=== PATIENT | female | born 1980 | race Caucasian/White ===

== ENCOUNTER 2017-09-03 08:19 | Inpatient (IN) ==
[2017-09-03] MEDS ORDERED: 0.9 % Sodium Chloride 1,000 ML IVC ONE (09:12)
[2017-09-03] MEDS ORDERED: 0.9 % Sodium Chloride 1,000 ML ONE (09:32)
[2017-09-03] MEDS ORDERED: 0.9 % Sodium Chloride 250 ML ONE (09:32)
[2017-09-03] MEDS ORDERED: Vancomycin 1,000 MG VIAL ONE (09:32)
--- NOTE | 2017-09-03 09:34 | Emergency Department Note ---
Disposition Clinical Impression: Finger infection Disposition: Admitted As Inpatient Condition: Fair Time of Disposition: 09:58 Extremity Problem HPI - General Chief complaint: ED Extremity Problem,Nontraumatic Stated complaint: finger Abscess Time Seen by Provider: 09/03/17 08:30 Source: patient Limitations: no limitations Nursing Notes Reviewed: Yes Vital Signs Reviewed: Yes - History of Present Illness HPI Narrative: Patient is a 36-year-old female who presents to [facility] ED with a chief complaint of left middle finger swelling, pain, redness. Patient states it has been there for the last several days. She admits to IV drug use though she did not inject in the site. She did try to incise and drain this on her own but states she did not get anything out. Admits to subjective fevers and chills at home. Denies any nausea, vomiting, chest pain, difficulty breathing, abdominal pain, problems with urination or bowel movements. Patient states she has an septic in the past from similar situation. Pt Subjective Complaint: extremity pain, extremity swelling Onset (ago): day(s) Consistency: Worsening Injury Location: left, upper extremity Pain Scale: 8 Quality: aching Improves with: nothing Worsens with: range of motion, palpation Associated symptoms: Reports: fever, change in appearance, swelling, redness. Denies: chest pain, shortness of breath, abdominal pain, back pain - Related Data Home Medications Medication Instructions Recorded Confirmed Venlafaxine XR (24 HR) [Effexor XR] 75 mg PO DAILY 08/19/16 09/03/17 Ferrous Sulfate [Iron] 325 mg PO DAILY 09/03/17 09/03/17 Gabapentin [Neurontin] 800 mg PO TID 09/03/17 09/03/17 cloNIDine HCl [CloNIDine HCl] 0.1 mg PO BID 09/03/17 09/03/17 Allergies Allergy/AdvReac Type Severity Reaction Status Date / Time linezolid [From Zyvox] Allergy Hives Verified 08/12/17 22:19 All systems ED: reviewed and negative except as stated. Past Medical History - Past Medical History Attestation: Yes The following information was validated with the patient. Source: patient Medical history: Reports: COPD, hepatitis Psychiatric history: Reports: no psych history - Social History Smoking Status: Current every day smoker Alcohol use: Reports: none Drug use: Reports: IV Drug Use Physical Exam - General Limitations: no limitations General appearance: alert, in no apparent distress - Head Head exam: atraumatic, normocephalic, normal inspection - Eye Eye exam: Present: normal appearance, EOMI - Neck Neck exam: Present: normal inspection - Chest Chest inspection: Present: symmetric chest wall rise - Respiratory Respiratory exam: Present: normal lung sounds bilaterally - Cardiovascular Cardiovascular exam: Present: normal rhythm, tachycardia - Abdominal Exam Abdominal exam: Present: soft, Non-Tender. Absent: tenderness, distention, guarding, rebound, rigidity - Expanded Upper Extremity Exam Hand exam: Present: tenderness, swelling, erythema - Neurological Exam Neurological exam: Present: alert, oriented X3 - Psychiatric Psychiatric exam: Present: normal affect, normal mood - Skin Skin exam: Present: warm, dry, intact, normal color Course Course Narrative: Patient seen and examined. Left middle digit swelling and erythema. Bedside ultrasound performed which showed some increased edema and fluid surrounding the extensor tendons. Patient has pain with passive range of motion though not any pain along the proximal digital sheet. I discussed with orthopedic surgeon Dr. Starkey who would also like a CRP and ESR and a L hand xray. He will see the patient in consultation. Patient will be admitted to the hospitalist service once her workup is complete. - Reevaluation(s) Reevaluation #1: Labwork shows CRP 37, otherwise unremarkable. Discussed with hospitalist Dr. De Santiago who has accepted pt for admission. Would like Zosyn added. Time: 09:58 Vital Signs Temperature 98.5 F 09/03/17 08:22 Pulse Rate 108 09/03/17 08:22 Respiratory Rate 18 09/03/17 08:22 Blood Pressure 144/99 09/03/17 08:22 O2 Sat by Pulse Oximetry 100 09/03/17 08:22 Temperature 98.5 F 09/03/17 08:22 Pulse Rate 94 09/03/17 10:11 Respiratory Rate 16 09/03/17 10:11 Blood Pressure 141/97 09/03/17 10:11 O2 Sat by Pulse Oximetry 100 09/03/17 08:22 Oxygen Delivery Oxygen Delivery Room Air Extremity Problem, Nontraumati - Medical Records Medical records reviewed: Yes I reviewed the patient's medical records. - Lab Data Lab results reviewed: Yes I reviewed the patient's lab results. Result diagrams: 09/03/17 09:24 09/03/17 09:24 Lab Results 09/03/17 09/03/17 09/03/17 Range/Units 09:24 09:24 09:24 WBC 7.4 (4.3-11.1) K/mcL RBC 4.87 (3.82-4.97) M/mcL Hgb 12.9 (11.5-15.4) g/dL Hct 40.9 (35.3-44.9) % MCV 84.0 (83.0-100.0) fL MCH 26.5 L (28.0-33.3) pg MCHC 31.5 L (31.6-35.5) g/dL RDW 15.7 H (11.5-14.5) % Plt Count 237 (140-400) K/mcL MPV 8.9 L (9.4-12.4) fL Immature Gran % 0.3 (0-4) % Seg Neutrophils % 69.4 % Lymphocytes % 20.9 % Monocytes % 5.6 % Eosinophils % 3.7 % Basophils % 0.1 % Neutrophils # 5.1 (1.6-8.9) K/mcL Lymphocytes # 1.5 (0.6-4.6) K/mcL Monocytes # 0.4 (0.0-1.3) K/mcL Eosinophils # 0.3 (0.0-0.6) K/mcL Basophils # 0.0 (0.0-0.2) K/mcL ESR (0-15) mm/hr Sodium 134 L (136-145) mEq/L Potassium 3.7 (3.5-5.1) mEq/L Chloride 100 (98-107) mEq/L Carbon Dioxide 27 (23-29) mEq/L BUN 11 (6-20) mg/dL Creatinine 0.73 (0.60-1.20) mg/dL Est GFR ( Amer) > 60 (> 60) Est GFR (Non-Af Amer) > 60 (> 60) BUN/Creatinine Ratio 15 (6-26) Glucose 94 (70-105) mg/dL Calculated Osmolality 277 L (280-300) Lactic Acid 0.6 (0.5-2.2) mmol/L Calcium 9.7 (8.6-10.3) mg/dL C-Reactive Protein 37 H (Less than 10) mg/L 09/03/17 Range/Units 09:24 WBC (4.3-11.1) K/mcL RBC (3.82-4.97) M/mcL Hgb (11.5-15.4) g/dL Hct (35.3-44.9) % MCV (83.0-100.0) fL MCH (28.0-33.3) pg MCHC (31.6-35.5) g/dL RDW (11.5-14.5) % Plt Count (140-400) K/mcL MPV (9.4-12.4) fL Immature Gran % (0-4) % Seg Neutrophils % % Lymphocytes % % Monocytes % % Eosinophils % % Basophils % % Neutrophils # (1.6-8.9) K/mcL Lymphocytes # (0.6-4.6) K/mcL Monocytes # (0.0-1.3) K/mcL Eosinophils # (0.0-0.6) K/mcL Basophils # (0.0-0.2) K/mcL ESR 57 H (0-15) mm/hr Sodium (136-145) mEq/L Potassium (3.5-5.1) mEq/L Chloride (98-107) mEq/L Carbon Dioxide (23-29) mEq/L BUN (6-20) mg/dL Creatinine (0.60-1.20) mg/dL Est GFR ( Amer) (> 60) Est GFR (Non-Af Amer) (> 60) BUN/Creatinine Ratio (6-26) Glucose (70-105) mg/dL Calculated Osmolality (280-300) Lactic Acid (0.5-2.2) mmol/L Calcium (8.6-10.3) mg/dL C-Reactive Protein (Less than 10) mg/L - Radiology Data Radiology results reviewed: Yes I reviewed the patient's radiology results. Attestation Statement - Attestation Attestation: I examined this patient and my medical decision-making was reviewed with the Resident Physician. I agree with the documented findings, disposition and treatment plan as described except to the extent set forth below. Has fusiform swelling and pain w passive extension, does not hold finger in passive flexion, no pain along flexor tendon sheath. Denies injecting at this site, admits to IVDA.
[2017-09-03 09:42] LABS: Basophils % 0.1 %; Eosinophils # 0.3 K/mcL (0.0-0.6); Eosinophils % 3.7 %; Hematocrit 40.9 % (35.3-44.9); Hemoglobin 12.9 g/dL (11.5-15.4); Immature Granulocytes % 0.3 % (0-4); Lymphocytes # 1.5 K/mcL (0.6-4.6); Lymphocytes % 20.9 %; Mean Corpuscular HGB Conc 31.5 g/dL (31.6-35.5); Mean Corpuscular Hemoglobin 26.5 pg (28.0-33.3); Mean Platelet Volume 8.9 fL (9.4-12.4); Monocytes # 0.4 K/mcL (0.0-1.3); Monocytes % 5.6 %; Neutrophils # 5.1 K/mcL (1.6-8.9); Platelet Count 237 K/mcL (140-400); Red Blood Count 4.87 M/mcL (3.82-4.97); Red Cell Distribution Width 15.7 % (11.5-14.5); Segmented Neutrophils % 69.4 %
[2017-09-03 09:55] LABS: BUN/Creatinine Ratio 15 (6-26); Blood Urea Nitrogen 11 mg/dL (6-20); C-Reactive Protein 37 mg/L (Less than 10); Calcium 9.7 mg/dL (8.6-10.3); Carbon Dioxide 27 mEq/L (23-29); Chloride 100 mEq/L (98-107); Glucose 94 mg/dL (70-105); Osmolality,Calculated 277 (280-300); Potassium 3.7 mEq/L (3.5-5.1); Sodium 134 mEq/L (136-145); eGFR For African Americans > 60 (> 60); eGFR For Non-African Americans > 60 (> 60)
[2017-09-03] MEDS ORDERED: Piperacillin/Tazobactam 3.375 GM in 0.9 % Sodium Chloride Mini Bag 100 ML IVPB ONE (09:55)
[2017-09-03] MEDS ORDERED: Naloxone 0.4 MG/ML INJ IVP PRN (11:03)
[2017-09-03] MEDS ORDERED: Acetaminophen 325 MG TABLET PO PRN (11:03)
[2017-09-03] MEDS ORDERED: 0.9 % Sodium Chloride 1,000 ML IVC SCH (11:15)
[2017-09-03] MEDS: *HR* FentaNYL (PF) 100 MCG/2 ML VIAL IVP PRN ×2 (11:31→16:04)
[2017-09-03] MEDS: *HR* HYDROcodone/Acet 5/325 mg TABLET PO PRN ×2 (13:27→22:00)
[2017-09-03] MEDS: Venlafaxine XR (24 HR) 75 MG CAP.ER.24H PO SCH (13:28)
--- NOTE | 2017-09-03 14:04 | Internal Med History&Physical ---
Date of Encounter: 09/03/17 Time of Encounter: 11:30 Assessment and Plan (1) Abscess of left middle finger Current visit: Yes Status: Acute Admit the pt into Tele high risk pt for sepsis and bacteremia ordered blood cx x 2 sets Ortho consulted Reviewed Left hand X ray - no acute fracture noticed.. Diffuse swelling of 3rd finger ESR -57, CRP -37 Started on empirical abx Vancomycin and Zosyn continue symptomatic and supportive care (2) Cellulitis of left middle finger Current visit: Yes Status: Acute (3) IV drug abuse Current visit: Yes Status: Acute counseled to quit had last Heroin 3 days ago as per pt high risk for withdrawl symptoms on CIWA protocol Ativan PRN on Tele monitor Cont Clonidine (4) S/P infectious endocarditis Current visit: Yes Status: Acute If pt became bacteremic need further cardiac work up TTE vs WIN Internal Medicine - H&P: HPI Chief complaint: Left middle finger cellulities Admitted From: Emergency Dept Plans for Post Hospital Care: Home History of present illness: Ms. Cerrato is a 36 year old female with known past medical history of IV drug abuse, h/o Infectious endocarditis who is still actively doing IV heroin now she presented to ER with Left 3rd finger swelling, erythema and worsening tenderness from last 3 days. pt did mention trauma to that finger while she was moving some boxes, however she denied any IV drugs injecting in that finger. Past Med Surg Social Fam HX - Past Medical History Medical history: COPD, hepatitis Psychiatric history: no psych history - Past Surgical History Surgical History: - Social History Smoking Status: Current every day smoker Packs per day: 0.5 Smokeless Tobacco Status: No Alcohol use: none Drug use: IV Drug Use - Additional Family History Additional family history: Family hsitory reviewed and non contribuitory to current problem. Internal Medicine - H&P: Meds Venlafaxine XR (24 HR) [Effexor XR] 75 mg PO DAILY 08/19/16 [History] Ferrous Sulfate [Iron] 325 mg PO DAILY 09/03/17 [History] Gabapentin [Neurontin] 800 mg PO TID 09/03/17 [History] cloNIDine HCl [CloNIDine HCl] 0.1 mg PO BID 09/03/17 [History] 3 Allergy/AdvReac Type Severity Reaction Status Date / Time linezolid [From Zyvox] Allergy Hives Verified 08/12/17 22:19 All Systems PM: A 10-system review of systems was performed and is negative for pertinent findings except as documented above in the HPI. Review of systems: All the systems are reviewed everything is benign except the systems and symptoms I mentioned in the history of present illness - Constitutional Vitals: Temp Pulse Resp BP Pulse Ox 98.4 F 115 14 129/85 96 09/03/17 10:41 09/03/17 10:41 09/03/17 10:41 09/03/17 10:41 09/03/17 10:41 General appearance: Present: cooperative, A&O X 3, no acute distress, answers questions appropriately - Head Head exam: Present: atraumatic, normal inspection - Neck Neck exam general surgery: Present: supple - Respiratory Respiratory exam: Present: decreased breath sounds. Absent: rales, respiratory distress, rhonchi, wheezes - Cardiovascular Cardiovascular exam: Present: RRR, +S1, +S2. Absent: tachycardia - GI/Abdominal GI/Abdominal exam: Present: normal bowel sounds, soft. Absent: rebound, rigid, tenderness - Extremities Exam Extremities exam: Absent: calf tenderness, pedal edema, tenderness Additional comments: Swollen Left 3rd finger and erythema and severe tenderness. No open wound / no purulent drainage noticed - Back Exam Back exam: Absent: CVA tenderness (L), CVA tenderness (R) - Neurological Exam Neurological exam: Present: alert, oriented X3 - Psychiatric Psychiatric exam: Present: normal affect, normal mood - Skin Skin exam: Present: erythema Internal Med - H&P Results - Labs CBC & Chem 7: 09/03/17 09:24 09/03/17 09:24
[2017-09-03] MEDS ORDERED: *HR* LORazepam 1 MG TABLET PO PRN (14:17)
[2017-09-03 15:34] LABS: Amphetamine Screen,Urine Negative ng/mL (Cutoff=1000); Barbiturate Screen,Urine Negative ng/mL (Cutoff=200); Benzodiazepines Screen,Urine Negative ng/mL (Cutoff=200); Cannabinoid Screen,Urine Negative ng/mL (Cutoff = 50); Cocaine Screen,Urine Positive ng/mL (Cutoff= 300); Opiate Screen,Urine Positive ng/mL (Cutoff=300); Phencyclidine Screen,Urine Negative ng/mL (Cutoff=25)
[2017-09-03] MEDS ORDERED: Piperacillin/Tazobactam 3.375 GM in 0.9 % Sodium Chloride Mini Bag 100 ML IVPB SCH ×2 (16:00→21:00)
[2017-09-03] MEDS: Gabapentin 400 MG CAPSULE PO SCH ×2 (16:01→21:58)
[2017-09-03] MEDS: Nicotine 21 MG PATCH.TD24 TD SCH (16:06)
--- NOTE | 2017-09-03 16:33 | Orthopedic Consult Note ---
Date of Encounter: 09/03/17 Time of Encounter: 16:29 Assessment and Plan (1) Abscess of left middle finger Current Visit: Yes Status: Acute Left long finger abscess. I did discuss the diagnosis in detail with the patient and recommended incision, drainage, irrigation, and debridement of left long finger. The risks discussed included but were not limited to stiffness, bleeding, infection, blood clots, damage to neurovascular structures, tendons, ligaments, and bone. Also discussed was the risk of continued symptoms and possible need for further procedures. We will perform this at the bedside under local anesthetic. She did wish to proceed and consent was obtained. After setting of the sterile field I did anesthetize the left long finger with 10 mL of 1% lidocaine with epinephrine. I made a 2 cm dorsal incision over the middle phalangeal region and drained copious amounts of grossly purulent material which was sent for aerobic and anaerobic cultures. I did irrigate the wound with sterile saline. I did pack the wound open with quarter-inch packing. A soft dressing was applied. My recommendation is continued IV antibiotics in-house with local wound care and daily dressing and packing changes. I will follow the patient with you clinically. I did discuss the possible need for formal operative I&D should she not continue to improve after the bedside I&D. Nothing by mouth after midnight. History of Present Illness HPI: Ms. Cerrato is a 36 year old female who is a known IV drug user who is admitted to the hospitalist for a left long finger infection. She says that she has injected into her fingers previously but not in the long finger recently. Over the course of the last 3-4 days she developed an infection in the left long finger did try to drain herself but was unsuccessful. She presented to the emergency department and was admitted or treatment. On my evaluation the patient complains of isolated pain in the left long finger mostly on the dorsal aspect. No injuries. He denies any puncture injuries. She does say that there is some numbness and tingling. No other associated signs or symptoms. Pain is worse with movement and better with rest. No other modifying factors. Past Med Surg Social Fam HX - Past Medical History Medical history: COPD, hepatitis Psychiatric history: no psych history - Past Surgical History Surgical History: - Social History Smoking Status: Current every day smoker Packs per day: 0.5 Smokeless Tobacco Status: No Alcohol use: none Drug use: IV Drug Use Medications and Allergies Venlafaxine XR (24 HR) [Effexor XR] 75 mg PO DAILY 08/19/16 [History] Ferrous Sulfate [Iron] 325 mg PO DAILY 09/03/17 [History] Gabapentin [Neurontin] 800 mg PO TID 09/03/17 [History] cloNIDine HCl [CloNIDine HCl] 0.1 mg PO BID 09/03/17 [History] 3 Allergy/AdvReac Type Severity Reaction Status Date / Time linezolid [From Zyvox] Allergy Hives Verified 08/12/17 22:19 All Systems Reviewed: The remainder of the systems were reviewed and are negative Physical Exam - Constitutional Vitals: Temp Pulse Resp BP Pulse Ox 98.4 F 115 14 129/85 96 09/03/17 10:41 09/03/17 10:41 09/03/17 10:41 09/03/17 10:41 09/03/17 10:41 CONSTITUTIONAL -Vitals reviewed -The patient is well developed, well nourished, well groomed PSYCHIATRIC -Fully alert and oriented -Pleasant mood LEFT UPPER EXTREMITY -The skin and the soft tissue envelope is intact -Significant focal swelling along the dorsal aspect of the long finger over the middle phalangeal region with a more mild diffuse swelling of the digit overall. -Significant cellulitis dorsally -Mild fluctuance over the dorsal aspect of the long finger in the area of maximal swelling -She can grossly flex and extend the digit with worsening pain dorsally -The patient can actively flex and extend all digits, extend the thumb, cross the index and long fingers, make an okay sign, and oppose the thumb -The fingertips are all grossly sensate and well-perfused, and the radial artery pulse is 2+. Diagnostic Imaging: I did personally review and interpret x-rays of the left hand show soft tissue swelling of the left long finger without any involvement of the bone. Results - Labs Result Diagrams: 09/03/17 09:24 09/03/17 09:24 Labs: Abnormal lab results MCH 26.5 pg (28.0-33.3) L 09/03/17 09:24 MCHC 31.5 g/dL (31.6-35.5) L 09/03/17 09:24 RDW 15.7 % (11.5-14.5) H 09/03/17 09:24 MPV 8.9 fL (9.4-12.4) L 09/03/17 09:24 ESR 57 mm/hr (0-15) H 09/03/17 09:24 Sodium 134 mEq/L (136-145) L 09/03/17 09:24 Calculated Osmolality 277 (280-300) L 09/03/17 09:24 C-Reactive Protein 37 mg/L (Less than 10) H 09/03/17 09:24 Urine Opiates Screen Positive ng/mL (Yqllyg=005) H 09/03/17 15:07 Urine Cocaine Screen Positive ng/mL (Cutoff= 300) H 09/03/17 15:07 All other labs normal. Consult Discharge Plan - Plan Referrals: Mert Villa, COMMERCIAL AGENT [Primary Care Provider] -
--- NOTE | 2017-09-03 16:47 | Orthopedics Progress Note ---
Date of Encounter: 09/03/17 Time of Encounter: 16:44 - Assessment and Plan (1) Abscess of left middle finger Current Visit: Yes Status: Acute Left long finger abscess. I did discuss the diagnosis in detail with the patient and recommended incision, drainage, irrigation, and debridement of left long finger. The risks discussed included but were not limited to stiffness, bleeding, infection, blood clots, damage to neurovascular structures, tendons, ligaments, and bone. Also discussed was the risk of continued symptoms and possible need for further procedures. We will perform this at the bedside under local anesthetic. She did wish to proceed and consent was obtained. After setting of the sterile field I did anesthetize the left long finger with 10 mL of 1% lidocaine with epinephrine. I made a 2 cm dorsal incision over the middle phalangeal region and drained copious amounts of grossly purulent material which was sent for aerobic and anaerobic cultures. I did irrigate the wound with sterile saline. I did pack the wound open with quarter-inch packing. A soft dressing was applied. My recommendation is continued IV antibiotics in-house with local wound care and daily dressing and packing changes. I will follow the patient with you clinically. I did discuss the possible need for formal operative I&D should she not continue to improve after the bedside I&D. Nothing by mouth after midnight. Subjective Interval history: S: Resting comfortably in bed Improved pain to the left arm after I&D of the intramuscular abscess Expected postoperative pain O: Afebrile and the vital signs are stable The wound is inspected and the packing is changed No significant drainage No gross purulent drainage The bed of the wound is clean No concern for persistent deep abscess Dramatic improvement of the cellulitis which is almost completely resolved at this point The patient can actively flex and extend all digits, extend the thumb, cross the index and long fingers, make an okay sign, and oppose the thumb. The fingertips are all grossly sensate and well-perfused, and the radial artery pulse is 2+. Cultures are pending A: Post I&D of the deep intramuscular abscess on the left upper arm P: Activities as tolerated Continue local wound care with daily dressing changes and packing changes I did discuss antibiotics with Judy Leija of ID regarding possible discharge on oral Abx as the wound bed is clean and there is no involvement of bone or the joint. She will discuss this further with Dr. Jonna Follow up cultures Objective Vital signs: Vital Signs Temp Pulse Resp BP Pulse Ox 09/03/17 10:41 98.4 F 115 14 129/85 96 Intake and Output 09/03/17 09/03/17 09/03/17 07:59 15:59 23:59 Intake Total 325 / 325 Balance 325 / 325 Intake: IV Fluids 250 / 250 Vancocin 1,000 MG In 0.9 % 250 / 250 Sodium Chloride 250 ML @ 167 mls/hr IVPB ONCE ONE Rx#: [id number] Oral 75 / 75 Other: Meal Lunch Percent of Meal Consumed 100% Weight 82.781 kg Patient Weight 09/03/17 23:59 Weight 82.781 kg - Labs CBC & BMP: 09/03/17 09:24 09/03/17 09:24 Labs: Abnormal lab results MCH 26.5 pg (28.0-33.3) L 09/03/17 09:24 MCHC 31.5 g/dL (31.6-35.5) L 09/03/17 09:24 RDW 15.7 % (11.5-14.5) H 09/03/17 09:24 MPV 8.9 fL (9.4-12.4) L 09/03/17 09:24 ESR 57 mm/hr (0-15) H 09/03/17 09:24 Sodium 134 mEq/L (136-145) L 09/03/17 09:24 Calculated Osmolality 277 (280-300) L 09/03/17 09:24 C-Reactive Protein 37 mg/L (Less than 10) H 09/03/17 09:24 Urine Opiates Screen Positive ng/mL (Bmtgvi=485) H 09/03/17 15:07 Urine Cocaine Screen Positive ng/mL (Cutoff= 300) H 09/03/17 15:07 Consult Discharge Plan - Plan Referrals: Mert Villa, PRESS ASSISTANT [Primary Care Provider] -
[2017-09-03] MEDS: cloNIDine HCl 0.1 MG TABLET PO SCH (21:58)
[2017-09-04] MEDS: Piperacillin/Tazobactam 3.375 GM in 0.9 % Sodium Chloride Mini Bag 100 ML IVPB SCH ×4 (01:35→23:59)
[2017-09-04 04:49] LABS: Basophils % 0.4 %; Eosinophils # 0.3 K/mcL (0.0-0.6); Eosinophils % 5.9 %; Hematocrit 35.2 % (35.3-44.9); Immature Granulocytes % 0.2 % (0-4); Lymphocytes # 1.8 K/mcL (0.6-4.6); Lymphocytes % 38.9 %; Mean Corpuscular HGB Conc 31.3 g/dL (31.6-35.5); Mean Corpuscular Hemoglobin 26.4 pg (28.0-33.3); Mean Corpuscular Volume 84.6 fL (83.0-100.0); Mean Platelet Volume 9.3 fL (9.4-12.4); Monocytes # 0.3 K/mcL (0.0-1.3); Neutrophils # 2.2 K/mcL (1.6-8.9); Nucleated Red Blood Cells 0.7 /100 WBC (0); Platelet Count 209 K/mcL (140-400); Red Blood Count 4.16 M/mcL (3.82-4.97); Red Cell Distribution Width 15.5 % (11.5-14.5); Segmented Neutrophils % 47.6 %
[2017-09-04 05:14] LABS: BUN/Creatinine Ratio 15 (6-26); Blood Urea Nitrogen 9 mg/dL (6-20); Calcium 8.6 mg/dL (8.6-10.3); Carbon Dioxide 23 mEq/L (23-29); Chloride 109 mEq/L (98-107); Glucose 91 mg/dL (70-105); Osmolality,Calculated 280 (280-300); Sodium 136 mEq/L (136-145); eGFR For African Americans > 60 (> 60); eGFR For Non-African Americans > 60 (> 60)
[2017-09-04] MEDS: Venlafaxine XR (24 HR) 75 MG CAP.ER.24H PO SCH (10:16)
[2017-09-04] MEDS: *HR* HYDROcodone/Acet 5/325 mg TABLET PO PRN ×2 (10:16→20:46)
[2017-09-04] MEDS: Nicotine 21 MG PATCH.TD24 TD SCH (10:17)
[2017-09-04] MEDS: Gabapentin 400 MG CAPSULE PO SCH ×3 (10:17→20:32)
[2017-09-04] MEDS: cloNIDine HCl 0.1 MG TABLET PO SCH ×2 (10:17→20:32)
--- NOTE | 2017-09-04 11:35 | Internal Med Progress Note ---
Date of Encounter: 09/04/17 Time of Encounter: 11:35 - Assessment and plan (1) Abscess of left middle finger Current Visit: Yes Status: Acute Assessment and plan: continue Vanc and Zosyn-Day 2 s/p I and D, follow final culture reports (2) Cellulitis of left middle finger Current Visit: Yes Status: Acute Assessment and plan: as above (3) IV drug abuse Current Visit: Yes Status: Acute Assessment and plan: Rafat peña noted, patient wishes to pursue inpatient rehab if necessary Monitor for withdrawal - Subjective Interval history: Seen and evaluated at [facility] s/p bedside I and D by ortho, finger examined, stil beefy red and inflammed, minimal discharge Ortho plans to take patient to OR a.m if not improving, Blood culture is negative Wound culture is pending - Constitutional Vitals: Temp Pulse Resp BP Pulse Ox 98 F 73 14 129/78 97 09/04/17 10:46 09/04/17 10:46 09/04/17 10:46 09/04/17 10:46 09/04/17 10:46 General appearance: Present: cooperative, A&O X 3, no acute distress, answers questions appropriately - Head Head exam: Present: atraumatic, normocephalic - Eye Eye exam: Present: PERRL, conjuntiva pink, sclera anicteric Pupils: Present: PERRL - Neck Neck exam general surgery: Present: supple, trachea midline. Absent: lymphadenopathy - Respiratory Respiratory exam: Present: CTAB. Absent: accessory muscle use, rales, rhonchi, wheezes - Cardiovascular Cardiovascular exam: Present: RRR, +S1, +S2. Absent: diastolic murmur, gallop, rubs, systolic murmur - GI/Abdominal GI/Abdominal exam: Present: normal bowel sounds, soft, no peritoneal signs. Absent: distended, tenderness - Extremities Exam Additional comments: R middle finger swollen, red, tender, incision site noted, surrounding pus. - Neurological Exam Neurological exam: Present: alert, CN II-XII intact, oriented X3, no focal deficits. Absent: pronater drift, facial droop, speech deficit - Skin Skin exam: Present: dry, intact Internal Medicine: Result - Labs CBC & Chem 7: 09/04/17 04:12 09/04/17 04:12 Labs: Short CBC 09/04/17 Range/Units 04:12 WBC 4.6 (4.3-11.1) K/mcL Hgb 11.0 L D (11.5-15.4) g/dL Hct 35.2 L (35.3-44.9) % Plt Count 209 (140-400) K/mcL Neutrophils # 2.2 (1.6-8.9) K/mcL BMP 09/04/17 04:12 Sodium 136 Potassium 4.0 Chloride 109 H Carbon Dioxide 23 BUN 9 Creatinine 0.60 Glucose 91 Calcium 8.6 Consult Discharge Plan - Plan Referrals: Mert Villa, WAREHOUSE PULLER [Primary Care Provider] -
--- NOTE | 2017-09-04 11:47 | Orthopedics Progress Note ---
Date of Encounter: 09/04/17 Time of Encounter: 08:00 - Assessment and Plan (1) Abscess of left middle finger Current Visit: Yes Status: Acute Subjective Interval history: S: Resting in bed comfortably Improved pain to the left long finger after I&D O: Afebrile and vital signs are stable Inspection of the left long finger shows that the packing is in place. This is pulled out. Minimal grossly purulent drainage Mild improvement of the erythema Improved motion of the long finger Minimal tenderness volarly Grossly tender over the I&D site The fingertips are all grossly sensate and well-perfused, and the radial artery pulse is 2+. A: Post I&D of the left long finger P: Local wound care with daily dressing and packing changes Continue to monitor on IV antibiotics due to improvement overnight If no further improvement tomorrow anticipate operative I&D Elevation Objective Vital signs: Vital Signs Temp Pulse Resp BP Pulse Ox 09/04/17 10:46 98 F 73 14 129/78 97 09/04/17 04:50 98 F 74 16 121/82 96 09/03/17 21:48 98.5 F 77 16 122/78 97 09/03/17 20:15 97 Intake and Output 09/03/17 09/04/17 09/04/17 23:59 07:59 15:59 Intake Total 1100 / 1100 0 / 0 1350 / 1350 Balance 1100 / 1100 0 / 0 1350 / 1350 Intake: IV Fluids 1100 / 1100 1350 / 1350 0.9 % Sodium Chloride 1,000 ML 1000 / 1000 @ 3750 mls/hr IVC .Q16M ONE Rx# :[id number] Zosyn 3.375 GM In 0.9 % Sodium 100 / 100 100 / 100 Chloride (Mini-Bag +) 100 ML @ 25 mls/hr IVPB Q8H DANIELE Rx#: [id number] Vancocin 1,250 MG In 0.9 % 250 / 250 Sodium Chloride 250 ML @ 166.67 mls/hr IVPB Q12H DANIELE Rx#: [id number] Oral 0 / 0 0 / 0 Other: # Voids 0 0 3 - Labs CBC & BMP: 09/04/17 04:12 09/04/17 04:12 Labs: Abnormal lab results Hgb 11.0 g/dL (11.5-15.4) L D 09/04/17 04:12 Hct 35.2 % (35.3-44.9) L 09/04/17 04:12 MCH 26.4 pg (28.0-33.3) L 09/04/17 04:12 MCHC 31.3 g/dL (31.6-35.5) L 09/04/17 04:12 RDW 15.5 % (11.5-14.5) H 09/04/17 04:12 MPV 9.3 fL (9.4-12.4) L 09/04/17 04:12 Nucleated RBCs/100 WBC 0.7 /100 WBC (0) H 09/04/17 04:12 ESR 57 mm/hr (0-15) H 09/03/17 09:24 Chloride 109 mEq/L (98-107) H 09/04/17 04:12 C-Reactive Protein 37 mg/L (Less than 10) H 09/03/17 09:24 Urine Opiates Screen Positive ng/mL (Qftcfn=814) H 09/03/17 15:07 Urine Cocaine Screen Positive ng/mL (Cutoff= 300) H 09/03/17 15:07 Consult Discharge Plan - Plan Referrals: Mert Villa, STUDENT SUPPORT SERVICES DIRECTOR [Primary Care Provider] -
[2017-09-04] MEDS: *HR* FentaNYL (PF) 100 MCG/2 ML VIAL IVP PRN ×2 (16:09→21:42)
[2017-09-05] MEDS: *HR* FentaNYL (PF) 100 MCG/2 ML VIAL IVP PRN ×3 (05:41→20:04)
[2017-09-05 05:50] LABS: Basophils % 0.2 %; Eosinophils # 0.2 K/mcL (0.0-0.6); Eosinophils % 3.5 %; Hematocrit 38.1 % (35.3-44.9); Hemoglobin 12.4 g/dL (11.5-15.4); Immature Granulocytes % 0.8 % (0-4); Lymphocytes % 34.3 %; Mean Corpuscular HGB Conc 32.5 g/dL (31.6-35.5); Mean Corpuscular Hemoglobin 26.9 pg (28.0-33.3); Mean Corpuscular Volume 82.6 fL (83.0-100.0); Mean Platelet Volume 9.9 fL (9.4-12.4); Monocytes # 0.3 K/mcL (0.0-1.3); Monocytes % 4.5 %; Neutrophils # 3.4 K/mcL (1.6-8.9); Platelet Count 259 K/mcL (140-400); Red Blood Count 4.61 M/mcL (3.82-4.97); Red Cell Distribution Width 15.3 % (11.5-14.5); Segmented Neutrophils % 56.7 %
[2017-09-05 06:00] LABS: BUN/Creatinine Ratio 15 (6-26); Blood Urea Nitrogen 11 mg/dL (6-20); Calcium 9.1 mg/dL (8.6-10.3); Carbon Dioxide 20 mEq/L (23-29); Chloride 112 mEq/L (98-107); Glucose 105 mg/dL (70-105); Osmolality,Calculated 286 (280-300); Potassium 4.6 mEq/L (3.5-5.1); Sodium 138 mEq/L (136-145); eGFR For African Americans > 60 (> 60); eGFR For Non-African Americans > 60 (> 60)
[2017-09-05] MEDS: Venlafaxine XR (24 HR) 75 MG CAP.ER.24H PO SCH (07:57)
[2017-09-05] MEDS: Gabapentin 400 MG CAPSULE PO SCH ×3 (07:57→20:04)
[2017-09-05] MEDS: cloNIDine HCl 0.1 MG TABLET PO SCH ×2 (07:57→20:04)
[2017-09-05] MEDS: Piperacillin/Tazobactam 3.375 GM in 0.9 % Sodium Chloride Mini Bag 100 ML IVPB SCH ×3 (07:58→23:35)
--- NOTE | 2017-09-05 08:38 | Orthopedics Progress Note ---
Date of Encounter: 09/05/17 Time of Encounter: 08:36 - Assessment and Plan (1) Abscess of left middle finger Current Visit: Yes Status: Acute Subjective Interval history: S: Resting in bed comfortably No significant improvement in pain. O: Afebrile and vital signs are stable Inspection of the left long finger shows that the packing is in place. This is pulled out. Mild purulent drainage. Erythema similar to yesterday Improved motion of the long finger Minimal tenderness volarly Grossly tender over the I&D site The fingertips are all grossly sensate and well-perfused, and the radial artery pulse is 2+. A: Post I&D of the left long finger P: Given no significant improvement compared to yesterday, and given that the patient has persistent purulent drainage, will plan on incision, drainage, irrigation, and debridement of the left long finger in the OR Objective Vital signs: Vital Signs Temp Pulse Resp BP Pulse Ox 09/05/17 06:58 98 F 71 16 106/67 98 09/05/17 03:44 98.0 F 70 16 111/67 99 09/04/17 20:36 98.1 F 79 16 125/82 99 09/04/17 15:40 98.2 F 71 14 107/71 97 09/04/17 10:46 98 F 73 14 129/78 97 Intake and Output 09/04/17 09/05/17 09/05/17 23:59 07:59 15:59 Intake Total 380 / 380 100 / 100 Output Total 0 / 0 0 / 0 Balance 380 / 380 100 / 100 Intake: IV Fluids 200 / 200 100 / 100 Zosyn 3.375 GM In 0.9 % Sodium 200 / 200 100 / 100 Chloride (Mini-Bag +) 100 ML @ 25 mls/hr IVPB Q8H DANIELE Rx#: [id number] Oral 180 / 180 0 / 0 Output: Urine 0 / 0 0 / 0 Other: Meal Dinner Percent of Meal Consumed 75% # Voids 1 Weight 82.554 kg Blood Glucose* 99 Patient Weight 09/05/17 23:59 Weight 82.554 kg - Labs CBC & BMP: 09/05/17 05:21 09/05/17 05:21 Labs: Abnormal lab results MCV 82.6 fL (83.0-100.0) L 09/05/17 05:21 MCH 26.9 pg (28.0-33.3) L 09/05/17 05:21 RDW 15.3 % (11.5-14.5) H 09/05/17 05:21 Nucleated RBCs/100 WBC 0.7 /100 WBC (0) H 09/04/17 04:12 ESR 57 mm/hr (0-15) H 09/03/17 09:24 Chloride 112 mEq/L (98-107) H 09/05/17 05:21 Carbon Dioxide 20 mEq/L (23-29) L 09/05/17 05:21 POC Glucose 99 (58-89) H 09/05/17 05:25 C-Reactive Protein 37 mg/L (Less than 10) H 09/03/17 09:24 Urine Opiates Screen Positive ng/mL (Bzprxz=934) H 09/03/17 15:07 Urine Cocaine Screen Positive ng/mL (Cutoff= 300) H 09/03/17 15:07 Consult Discharge Plan - Plan Referrals: Mert Villa, OUTSIDE MACHINIST APPRENTICE [Primary Care Provider] -
[2017-09-05] MEDS: Nicotine 21 MG PATCH.TD24 TD SCH (08:51)
[2017-09-05] MEDS: *HR* HYDROcodone/Acet 5/325 mg TABLET PO PRN ×2 (11:44→18:29)
[2017-09-05] MEDS ORDERED: Lidocaine -MPF 2% 2 ML VIAL ONE (11:50)
[2017-09-05] MEDS ORDERED: *HR* FentaNYL (PF) 100 MCG/2 ML VIAL ONE (12:32)
[2017-09-05] MEDS ORDERED: *HR* Midazolam HCl 2 MG/2 ML VIAL ONE (12:33)
[2017-09-05] MEDS ORDERED: *HR* Propofol 200 MG/20 ML VIAL IVP ONE ×2 (12:33→13:10)
--- NOTE | 2017-09-05 13:08 | Anesthesia Evaluation PreOp ---
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) Medications and Allergies Venlafaxine XR (24 HR) [Effexor XR] 75 mg PO DAILY 08/19/16 [History] Ferrous Sulfate [Iron] 325 mg PO DAILY 09/03/17 [History] Gabapentin [Neurontin] 800 mg PO TID 09/03/17 [History] cloNIDine HCl [CloNIDine HCl] 0.1 mg PO BID 09/03/17 [History] 3 Allergy/AdvReac Type Severity Reaction Status Date / Time linezolid [From Zyvox] Allergy Hives Verified 08/12/17 22:19 - Meds/Allergy Pre-op Review Medications Reviewed: Yes Allergies Reviewed: Yes Beta Blockers on Current Med List: No Anesthesia Results - Labs 09/05/17 05:21 09/05/17 05:21 Anesthesia Exam Selected Entries 09/05/17 06:58 Temperature 98 F Pulse Rate 71 Respiratory Rate 16 Blood Pressure 106/67 O2 Sat by Pulse Oximetry 98 Oxygen Delivery Method Room Air Weight: 83kg NPO (# of Hours): 8 - HEENT Pupil (Motor): EOMI Mallampati: II Teeth: Normal Oral Opening: Greater than 3 - ASSISTANT HVAC MECHANIC LOC: Oriented ASSISTANT HVAC MECHANIC Motor: Normal RUE, Normal LUE, Normal RLE, Normal LLE, Normal Face ASSISTANT HVAC MECHANIC Sensory: Normal: RUE, LUE, RLE, LLE, Face - Cardiac Rhythm: Regular Murmur: None - Pulmonary Breath Sounds: bilateral Clear Respiratory Effort: Symmetrical Anesthesia Assess/Plan ASA Score: 3 Modified [place] Scale for Level of Consciousness: Cooperative, oriented, and tranquil Anesthetic Plan: MAC Monitoring Plan: Standard Monitors Recovery Plan: PACU (agrees to MAC)
[2017-09-05] MEDS ORDERED: Lidocaine/EPI 1:100k 1% 20 ML VIAL ONE (13:22)
[2017-09-05] MEDS ORDERED: Ketamine *HR* 500 MG/10 ML MDV ONE (14:07)
--- NOTE | 2017-09-05 15:47 | Internal Med Progress Note ---
Date of Encounter: 09/05/17 Time of Encounter: 15:45 - Assessment and plan (1) Abscess of left middle finger Current Visit: Yes Status: Acute Assessment and plan: continue Vanc and Zosyn-Day 3 s/p I and D for anesthesia today, follow final culture reports Continue aggressive IV pain control. (2) IV drug abuse Current Visit: Yes Status: Acute Assessment and plan: Rafat peña noted, patient wishes to pursue inpatient rehab if necessary Monitor for withdrawal - Time Spent With Patient Greater than 35 minutes - Subjective Interval history: Patient seen and examined at the bedside right after IND under anesthesia. She is complaining of a lot of pain and rates it about 10/10 , sharp in the left middle finger - Constitutional Vitals: Temp Pulse Resp BP Pulse Ox 98 F 71 16 106/67 98 09/05/17 06:58 09/05/17 06:58 09/05/17 06:58 09/05/17 06:58 09/05/17 06:58 General appearance: Present: cooperative, A&O X 3, no acute distress, answers questions appropriately Exam: GENERAL: Alert, appears to be in significant distress, cooperative, crying in pain EYES: PERRLA, EOMI EARS: External ears normal, canals clear OROPHARYNX: Lips, mucosa, and tongue normal. Teeth and gums normal. Oropharynx normal. NECK: No jugulovenous distention, No carotid bruits, Carotid pulse normal contour, Supple LUNGS: Lungs clear to auscultation, Good diaphragmatic excursion CARDIAC: Normal S1 and S2; no rubs, murmurs, or gallops ABDOMEN: Abdomen soft, non-tender, BS normal, No masses or organomegaly EXTREMITIES: Postoperative bandage in the left hand, not removed due to patient preference Rest of the exam is non contributory Internal Medicine: Result - Labs CBC & Chem 7: 09/05/17 05:21 09/05/17 05:21 Labs: Short CBC 09/05/17 Range/Units 05:21 WBC 5.9 (4.3-11.1) K/mcL Hgb 12.4 (11.5-15.4) g/dL Hct 38.1 (35.3-44.9) % Plt Count 259 (140-400) K/mcL Neutrophils # 3.4 (1.6-8.9) K/mcL BMP 09/05/17 05:21 Sodium 138 Potassium 4.6 Chloride 112 H Carbon Dioxide 20 L BUN 11 Creatinine 0.71 Glucose 105 Calcium 9.1 Consult Discharge Plan - Plan Referrals: Mert Villa, [place] [Primary Care Provider] -
--- NOTE | 2017-09-05 16:02 | Orthopedic Operative Note ---
Date of procedure: 09/05/17 Procedure: OPERATIVE REPORT DATE OF PROCEDURE: 09/05/2017 SURGEON: Karsten Starkey MD PIPE FITTER WELDING(S): There were no assistants PREOPERATIVE DIAGNOSIS: Left long finger infection POSTOPERATIVE DIAGNOSIS: Left long finger infection PROCEDURE: Incision, drainage, irrigation, and debridement of the left long finger ANESTHESIA: MAC/local ESTIMATED BLOOD LOSS: 1 milliliters LOCAL INJECTION: 1% lidocaine with 1:100,000 epinephrine; 4 mL and total PREOPERATIVE NOTE AND INDICATIONS: This patient is a 36-year-old female with left long finger infection. She had an I&D on the floor but due to persistent purulence recommendation was for formal operative I&D. The surgical plan was discussed with the patient. The risks, benefits, alternatives, and potential complications of this procedure were discussed with the patient including injury to veins, arteries, nerves, tendons, ligaments, and bone. Also discussed were the risks of infection, bleeding, pain, blood clots, the possible need for a blood transfusion, the possible need for further procedures, heart attack, stroke, and . Additional risks include persistent infection, osteomyelitis, and the need for amputation. All of this was explained in simple terms, and the patient verbalized understanding and wished to proceed. Consent was given to proceed with surgery. PROCEDURE: The patient was seen in the preoperative holding area where the identify and the consent were confirmed. The left long finger was marked. Final questions were answered. The patient was brought back to the operating room and placed supine on the operating room table. A huddle was performed with the patient and all vital surgical team members confirming patient identity, the correct procedure, and the correct operative site. MAC/local was administered. The left upper extremity was prepped and draped in the usual sterile fashion. A surgical time out was performed immediately preceding the incision with all personnel in the operating room to confirm patient identity, the correct operative site and extremity, correct radiographic studies, availability of appropriate surgical equipment, and agreement on the planned procedure. Using a hemostat the wound was spread open. I was able to decompress a grossly purulent pocket of tissue distally along the dorsal aspect of the wound. I did spread circumferentially around the wound with a hemostat. 3 L of saline were copiously irrigated through the wound. It was packed open with quarter-inch iodoform packing. A sterile dressing was applied. The instrument, sponge, and needle counts were correct after wound closure. POST OPERATIVE PLAN: Weight Bearing: As tolerated to the left upper extremity. DVT Prophylaxis: Ambulation Activity: Avoid aggressive activities with the left upper extremity. Wound Care: Daily dressing changes Pain Control: Romie Was there an medical laboratory assistant present: No Estimated blood loss (cc): 1
[2017-09-06] MEDS: *HR* HYDROcodone/Acet 5/325 mg TABLET PO PRN (06:54)
[2017-09-06] MEDS: *HR* FentaNYL (PF) 100 MCG/2 ML VIAL IVP PRN (07:45)
[2017-09-06] MEDS: Nicotine 21 MG PATCH.TD24 TD SCH (07:50)
[2017-09-06] MEDS: Gabapentin 400 MG CAPSULE PO SCH ×2 (07:51→15:38)
[2017-09-06] MEDS: cloNIDine HCl 0.1 MG TABLET PO SCH (07:51)
[2017-09-06] MEDS: Venlafaxine XR (24 HR) 75 MG CAP.ER.24H PO SCH (07:51)
[2017-09-06] MEDS: Piperacillin/Tazobactam 3.375 GM in 0.9 % Sodium Chloride Mini Bag 100 ML IVPB SCH (07:51)
[2017-09-06 09:41] LABS: Basophils % 0.2 %; Eosinophils # 0.1 K/mcL (0.0-0.6); Hematocrit 35.8 % (35.3-44.9); Hemoglobin 11.7 g/dL (11.5-15.4); Immature Granulocytes % 0.2 % (0-4); Lymphocytes # 1.2 K/mcL (0.6-4.6); Lymphocytes % 23.3 %; Mean Corpuscular HGB Conc 32.7 g/dL (31.6-35.5); Mean Corpuscular Volume 82.7 fL (83.0-100.0); Mean Platelet Volume 9.5 fL (9.4-12.4); Monocytes # 0.2 K/mcL (0.0-1.3); Monocytes % 3.4 %; Neutrophils # 3.5 K/mcL (1.6-8.9); Platelet Count 257 K/mcL (140-400); Red Blood Count 4.33 M/mcL (3.82-4.97); Red Cell Distribution Width 15.4 % (11.5-14.5); Segmented Neutrophils % 70.9 %
[2017-09-06 09:54] LABS: Alanine Aminotransferase 17 Units/L (7-52); Albumin 3.6 g/dL (3.5-5.7); Alkaline Phosphatase 78 Units/L (34-104); Aspartate Amino Transferase 18 Units/L (13-39); BUN/Creatinine Ratio 14 (6-26); Bilirubin,Total 0.4 mg/dL (0.3-1.0); Blood Urea Nitrogen 10 mg/dL (6-20); Calcium 9.1 mg/dL (8.6-10.3); Carbon Dioxide 24 mEq/L (23-29); Chloride 107 mEq/L (98-107); Globulin 3.5 g/dL (2.4-3.5); Glucose 188 mg/dL (70-105); Osmolality,Calculated 288 (280-300); Potassium 3.7 mEq/L (3.5-5.1); Sodium 137 mEq/L (136-145); Total Protein 7.1 g/dL (6.4-8.9); eGFR For African Americans > 60 (> 60); eGFR For Non-African Americans > 60 (> 60)
--- NOTE | 2017-09-06 10:51 | Internal Med Progress Note ---
Date of Encounter: 09/06/17 Time of Encounter: 10:49 - Assessment and plan (1) Abscess of left middle finger Current Visit: Yes Status: Acute Assessment and plan: continue Vanc and Zosyn-Day 4 s/p I and D for anesthesia yesterday, follow final culture reports Continue aggressive IV pain control. (2) IV drug abuse Current Visit: Yes Status: Acute Assessment and plan: Rafat peña noted, patient wishes to pursue inpatient rehab if necessary Monitor for withdrawal - Time Spent With Patient 25 - 35 minutes - Subjective Interval history: Patient seen and evaluated at the bedside. Was resting comfortably. Patient states her pain is significantly improved as compared to yesterday. - Constitutional Vitals: Temp Pulse Resp BP Pulse Ox 98.2 F 76 14 104/67 99 09/06/17 06:31 09/06/17 06:31 09/06/17 06:31 09/06/17 06:31 09/06/17 06:31 General appearance: Present: cooperative, A&O X 3, no acute distress, answers questions appropriately Exam: GENERAL: Alert, does not appear to be in significant distress at this point. EYES: PERRLA, EOMI EARS: External ears normal, canals clear OROPHARYNX: Lips, mucosa, and tongue normal. Teeth and gums normal. Oropharynx normal. NECK: No jugulovenous distention, No carotid bruits, Carotid pulse normal contour, Supple LUNGS: Lungs clear to auscultation, Good diaphragmatic excursion CARDIAC: Normal S1 and S2; no rubs, murmurs, or gallops ABDOMEN: Abdomen soft, non-tender, BS normal, No masses or organomegaly EXTREMITIES: Postoperative bandage in the left hand, not removed due to patient preference Internal Medicine: Result - Labs CBC & Chem 7: 09/06/17 09:19 09/06/17 09:19 Labs: Short CBC 09/06/17 Range/Units 09:19 WBC 5.0 (4.3-11.1) K/mcL Hgb 11.7 (11.5-15.4) g/dL Hct 35.8 (35.3-44.9) % Plt Count 257 (140-400) K/mcL Neutrophils # 3.5 (1.6-8.9) K/mcL BMP 09/06/17 09:19 Sodium 137 Potassium 3.7 Chloride 107 Carbon Dioxide 24 BUN 10 Creatinine 0.73 Glucose 188 H Calcium 9.1 Liver Function 09/06/17 Range/Units 09:19 Total Bilirubin 0.4 (0.3-1.0) mg/dL AST 18 (13-39) Units/L ALT 17 (7-52) Units/L Alkaline Phosphatase 78 (34-104) Units/L Albumin 3.6 (3.5-5.7) g/dL Consult Discharge Plan - Plan Referrals: Mert Villa, BAR FINISH OPERATOR [Primary Care Provider] -
--- NOTE | 2017-09-06 12:29 | Orthopedics Progress Note ---
Date of Encounter: 09/06/17 Time of Encounter: 12:25 Subjective Interval history: S: Significant improvement in pain in the left long finger after surgical debridement. Denies any numbness or tingling. No fevers or chills. O: AFVSS Packing in place and pulled No purulent drainage Minimal erythema with minimal TTP at I&D site DNVI A: POD#1 s/p I&D of the left long finger P: Packing pulled this AM Continue IV Atbx per hospitalist service Daily dressing changes Objective Vital signs: Vital Signs Temp Pulse Resp BP Pulse Ox 09/06/17 11:45 98.3 F 75 16 114/77 99 09/06/17 06:31 98.2 F 76 14 104/67 99 09/06/17 03:52 98.1 F 75 16 107/70 98 09/05/17 20:41 98.2 F 69 14 106/66 97 09/05/17 16:00 98.1 F 72 17 114/70 99 Intake and Output 09/05/17 09/06/17 09/06/17 23:59 07:59 15:59 Intake Total 470 / 470 100 / 100 240 / 240 Output Total 0 / 0 200 / 200 Balance 470 / 470 -100 / -100 240 / 240 Intake: IV Fluids 350 / 350 100 / 100 Zosyn 3.375 GM In 0.9 % Sodium 100 / 100 100 / 100 Chloride (Mini-Bag +) 100 ML @ 25 mls/hr IVPB Q8H DANIELE Rx#: [id number] Vancocin 1,250 MG In 0.9 % 250 / 250 Sodium Chloride 250 ML @ 166.67 mls/hr IVPB Q12H DANIELE Rx#: [id number] Oral 120 / 120 0 / 0 240 / 240 Output: Urine 0 / 0 200 / 200 Other: Meal Dinner Breakfast Percent of Meal Consumed 100% 80% Weight 82.565 kg Patient Weight 09/06/17 23:59 Weight 82.565 kg - Labs CBC & BMP: 09/06/17 09:19 09/06/17 09:19 Labs: Abnormal lab results MCV 82.7 fL (83.0-100.0) L 09/06/17 09:19 MCH 27.0 pg (28.0-33.3) L 09/06/17 09:19 RDW 15.4 % (11.5-14.5) H 09/06/17 09:19 Nucleated RBCs/100 WBC 0.7 /100 WBC (0) H 09/04/17 04:12 ESR 57 mm/hr (0-15) H 09/03/17 09:24 Glucose 188 mg/dL (70-105) H 09/06/17 09:19 POC Glucose 99 (58-89) H 09/05/17 05:25 C-Reactive Protein 37 mg/L (Less than 10) H 09/03/17 09:24 Albumin/Globulin Ratio 1.0 (1.1-2.2) L 09/06/17 09:19 Urine Opiates Screen Positive ng/mL (Nylowo=456) H 09/03/17 15:07 Urine Cocaine Screen Positive ng/mL (Cutoff= 300) H 09/03/17 15:07 Consult Discharge Plan - Plan Referrals: Mert Villa, POLICY VALUE CALCULATOR [Primary Care Provider] -
[2017-09-06] MEDS ORDERED: OXYCODONE Oral CONC 10 MG/0.5 ML ORAL.SYG SL PRN (14:13)
[2017-09-06 15:17] VITALS: BP 117/73
[2017-09-06] MEDS ORDERED: OXYCODONE Oral CONC 10 MG/0.5 ML ORAL.SYG SL SCH (16:00)
--- NOTE | 2017-09-16 14:00 | Discharge Summary ---
Date of Encounter: 09/06/17 Time of Encounter: 16:30 - Discharge Diagnosis (1) Abscess of left middle finger Priority: Primary Status: Acute (2) IV drug abuse Priority: Secondary Status: Acute Hospital course: Ms. Cerrato is a 36 year old female who was being treated for finger abscess . She left AMA on 09/06/2017 - Time Spent with Patient Total time spent providing and/or coordinating discharge services: - Discharge Medications Home Medications: Venlafaxine XR (24 HR) [Effexor XR] 75 mg PO DAILY 08/19/16 [History] Ferrous Sulfate [Iron] 325 mg PO DAILY 09/03/17 [History] Gabapentin [Neurontin] 800 mg PO TID 09/03/17 [History] cloNIDine HCl [CloNIDine HCl] 0.1 mg PO BID 09/03/17 [History] Doxycycline 100 mg PO BID #10 capsule 09/08/17 [Rx] Allergies/Adverse Reactions: 3 Allergy/AdvReac Type Severity Reaction Status Date / Time linezolid [From Zyvox] Allergy Hives Verified 09/07/17 10:10 Date of admission: 09/05/17 15:43 Primary care physician: Mert Villa CNP - Constitutional Vitals: Temp Pulse Resp BP Pulse Ox 98.3 F 69 16 117/73 96 09/06/17 15:14 09/06/17 15:14 09/06/17 15:14 09/06/17 15:14 09/06/17 15:14 General appearance: Present: cooperative, A&O X 3, no acute distress, answers questions appropriately - Patient Status Disposition: Left Against Medical Advice Condition: Fair - Discharge Instructions Follow Up With: Mert Villa CNP [Primary Care Provider] -
== END 2017-09-06 17:45 | disposition left against medical advice (07) | DRG 383 ==
LOC: EMEROO 08:19 → 3ANU 08:19 → SUATTDRO 10:12 → 3ANU 10:24
PROVIDERS: ADMIT Family Medicine; ATTEND Internal Medicine

== ENCOUNTER 2017-09-06 19:28 | Inpatient (IN) ==
[2017-09-06] MEDS ORDERED: Haloperidol Lactate 5 MG/ML VIAL IM ONE (19:40)
--- NOTE | 2017-09-06 19:40 | Emergency Department Note ---
Disposition Clinical Impression: Abscess of left middle finger, IV drug abuse Disposition: Admitted As Inpatient Condition: Good Time of Disposition: 21:15 Extremity Problem HPI - General Chief complaint: ED Skin/Abscess/Foreign Body Stated complaint: Finger Infection, Signed AMA Time Seen by Provider: 09/06/17 19:36 Source: patient Limitations: no limitations Nursing Notes Reviewed: Yes Vital Signs Reviewed: Yes - History of Present Illness HPI Narrative: Ms Cerrato is a 36 yo F who presents with a left finger abscess. Patient left AMA today from [facility] after she waited for a PICC line for "16 hours", and didn' t receive it. Patient had I&D yesterday, and was on Vanc and zosyn. Patient has been an IVDU for 10 years, and has had multiple infections in the past including endocarditis. Patient's left finger abscess was believed to be from IVDU. Patient states her finger still hurts, 5/10 pain at rest, and worsens 10/ 10 pain severe sharp pain upon movement of her finger. Patient denies taking any medications the 3 hours she left AMA and presenting to ED including no IVDU. Patient denies fever, chest pain, sob, confusion. Pain Scale: 7 - Related Data Home Medications Medication Instructions Recorded Confirmed Venlafaxine XR (24 HR) [Effexor XR] 75 mg PO DAILY 08/19/16 09/03/17 Ferrous Sulfate [Iron] 325 mg PO DAILY 09/03/17 09/03/17 Gabapentin [Neurontin] 800 mg PO TID 09/03/17 09/03/17 cloNIDine HCl [CloNIDine HCl] 0.1 mg PO BID 09/03/17 09/03/17 Allergies Allergy/AdvReac Type Severity Reaction Status Date / Time linezolid [From Zyvox] Allergy Hives Verified 09/06/17 19:34 All systems ED: reviewed and negative except as stated. Review of Systems: As Per HPI Past Medical History - Past Medical History Attestation: Yes The following information was validated with the patient. Source: patient Medical history: Reports: COPD, hepatitis Surgical history: Reports: Psychiatric history: Reports: no psych history - Social History Smoking Status: Current every day smoker Smokeless Tobacco Status: No Alcohol use: Reports: none Drug use: Reports: IV Drug Use Physical Exam - General Limitations: no limitations General appearance: alert, in no apparent distress, anxious - Eye Eye exam: Present: normal appearance, PERRL, EOMI. Absent: scleral icterus, conjunctival injection, nystagmus, miosis, mydriasis, periorbital swelling, periorbital tenderness - ENT ENT exam: normal exam, normal oropharynx, mucous membranes moist - Neck Neck exam: Present: normal inspection, full ROM, trachea midline - Chest Chest inspection: Present: normal inspection, symmetric chest wall rise - Respiratory Respiratory exam: Present: normal lung sounds bilaterally - Cardiovascular Cardiovascular exam: Present: regular rate, normal rhythm, normal heart sounds - Expanded Upper Extremity Exam Hand exam: Present: tenderness, swelling, laceration (laceration on posterior middle left finger surface from I&D is dry and clean.), other (Patient is unable to flex, extend middle left finger on active ROM). Absent: skin avulsion Course Course Narrative: U/S guided IV placed. Haldol given for anxiety. CBC and BMP pending. Will admit after labs return. Will give one dose of vanc and zosyn. - Reevaluation(s) Reevaluation #1: K+ came back low, ordered PO K+ 40 replacement. Patient was accepted by admitting physician, Dr. Pitt. He requested a urine tox, and he will follow up with results. Time: 20:30 Vital Signs Temperature 98.3 F 09/06/17 19:30 Pulse Rate 101 09/06/17 19:30 Respiratory Rate 20 09/06/17 19:30 Blood Pressure 135/92 09/06/17 19:30 O2 Sat by Pulse Oximetry 99 09/06/17 19:30 Temperature 98.5 F 09/06/17 23:31 Pulse Rate 68 09/06/17 23:31 Respiratory Rate 16 09/06/17 23:31 Blood Pressure 112/72 09/06/17 23:31 O2 Sat by Pulse Oximetry 98 09/06/17 23:31 Oxygen Delivery Oxygen Delivery Room Air Extremity Problem, Nontraumati - Medical Records Medical records reviewed: Yes I reviewed the patient's medical records. - Lab Data Lab results reviewed: Yes I reviewed the patient's lab results. Result diagrams: 09/06/17 19:54 09/06/17 19:54 Lab Results 09/06/17 09/06/17 09/06/17 Range/Units 19:54 19:54 20:51 WBC 7.2 (4.3-11.1) K/mcL RBC 4.74 (3.82-4.97) M/mcL Hgb 12.6 (11.5-15.4) g/dL Hct 39.0 (35.3-44.9) % MCV 82.3 L (83.0-100.0) fL MCH 26.6 L (28.0-33.3) pg MCHC 32.3 (31.6-35.5) g/dL RDW 15.1 H (11.5-14.5) % Plt Count 339 (140-400) K/mcL MPV 9.2 L (9.4-12.4) fL Immature Gran % 0.3 (0-4) % Seg Neutrophils % 66.6 % Lymphocytes % 27.3 % Monocytes % 4.0 % Eosinophils % 1.7 % Basophils % 0.1 % Neutrophils # 4.8 (1.6-8.9) K/mcL Lymphocytes # 2.0 (0.6-4.6) K/mcL Monocytes # 0.3 (0.0-1.3) K/mcL Eosinophils # 0.1 (0.0-0.6) K/mcL Basophils # 0.0 (0.0-0.2) K/mcL Sodium 137 (136-145) mEq/L Potassium 3.3 L (3.5-5.1) mEq/L Chloride 105 (98-107) mEq/L Carbon Dioxide 24 (23-29) mEq/L BUN 9 (6-20) mg/dL Creatinine 0.71 (0.60-1.20) mg/dL Est GFR ( Amer) > 60 (> 60) Est GFR (Non-Af Amer) > 60 (> 60) BUN/Creatinine Ratio 13 (6-26) Glucose 96 (70-105) mg/dL Calculated Osmolality 283 (280-300) Calcium 9.3 (8.6-10.3) mg/dL Urine Opiates Screen Positive H (Hnjfnu=409) ng/mL Ur Barbiturates Screen Negative (Vfviic=584) ng/mL Ur Phencyclidine Scrn Negative (Cutoff=25) ng/mL Ur Amphetamines Screen Negative (Mausdc=9990) ng/mL U Benzodiazepines Scrn Negative (Mbildw=710) ng/mL Urine Cocaine Screen Negative (Cutoff= 300) ng/mL U Marijuana (THC) Screen Negative (Cutoff = 50) ng/mL Attestation Statement - Attestation Attestation: I examined this patient and my medical decision-making was reviewed with the Resident Physician. I agree with the documented findings, disposition and treatment plan as described except to the extent set forth below. Chronic left finger abscess. Patient signed out AMA today after becoming anxious. Patient will be readmitted for IV antibiotic therapy. Patient has history of IV drug abuse.
[2017-09-06 20:08] LABS: Basophils % 0.1 %; Eosinophils # 0.1 K/mcL (0.0-0.6); Eosinophils % 1.7 %; Hemoglobin 12.6 g/dL (11.5-15.4); Immature Granulocytes % 0.3 % (0-4); Lymphocytes % 27.3 %; Mean Corpuscular HGB Conc 32.3 g/dL (31.6-35.5); Mean Corpuscular Hemoglobin 26.6 pg (28.0-33.3); Mean Corpuscular Volume 82.3 fL (83.0-100.0); Mean Platelet Volume 9.2 fL (9.4-12.4); Monocytes # 0.3 K/mcL (0.0-1.3); Neutrophils # 4.8 K/mcL (1.6-8.9); Platelet Count 339 K/mcL (140-400); Red Blood Count 4.74 M/mcL (3.82-4.97); Red Cell Distribution Width 15.1 % (11.5-14.5); Segmented Neutrophils % 66.6 %
[2017-09-06] MEDS ORDERED: Piperacillin/Tazobactam 3.375 GM in 0.9 % Sodium Chloride Mini Bag 100 ML IVPB ONE (20:11)
[2017-09-06 20:19] LABS: BUN/Creatinine Ratio 13 (6-26); Blood Urea Nitrogen 9 mg/dL (6-20); Calcium 9.3 mg/dL (8.6-10.3); Carbon Dioxide 24 mEq/L (23-29); Chloride 105 mEq/L (98-107); Glucose 96 mg/dL (70-105); Osmolality,Calculated 283 (280-300); Potassium 3.3 mEq/L (3.5-5.1); Sodium 137 mEq/L (136-145); eGFR For African Americans > 60 (> 60); eGFR For Non-African Americans > 60 (> 60)
--- NOTE | 2017-09-06 20:36 | Internal Med History&Physical ---
Date of Encounter: 09/06/17 Time of Encounter: 20:31 Assessment and Plan (1) Abscess of left middle finger Current visit: No Status: Acute Patient left AGAINST MEDICAL ADVICE earlier today. She was planned to have a PICC line and was frustrated by the delay in the PICC line being placed. Not sure if the PICC line was to be placed with plans for IV abx at discharge. Possibly it was to be placed due to poor IV sites given her history of IVDA. She has peripherals now. She is status post incision and drainage with irrigation and debridement of the left long finger on 09/05/2017 in OR by orthopedics. Follow up on cultures. History of drug abuse, I would avoid a PICC line for now while hospitalized. We will place the patient on broad- spectrum IV antibiotics with vancomycin and Zosyn for now. We will ask ID to see the patient and make recommendations on final antibiotics. If IV antibiotics recommended at discharge and a PICC line as needed, I would recommend the patient be placed into a facility to finish treatment. Consult orthopedics again. (2) IV drug abuse Current visit: No Status: Acute Given the fact that the patient has left and came back, a urine drug screen has been ordered. UDS on 09/03 was positive for cocaine and opiates. Wouldn't be surprised if it is positive for at least opiates again as she is also been on [place] while hospitalized. Cocaine can show up in urine up to 2 weeks in chronic cocaine users. Will see what the UDS shows this time. Based on documentation from earlier today, the patient was being followed by the social work job titles here and the patient had expressed interest in inpatient rehabilitation. I am not a 100% certain that the patient is serious about those wishes. Will consult social work job titles again. Monitor for withdrawal. (3) Hypokalemia Current visit: Yes Status: Acute Given 40 Meq oral potassium in the ED. check labs in am. (4) DVT prophylaxis Current visit: Yes Status: Acute Heparin subcutaneous Internal Medicine - H&P: HPI Chief complaint: Abscess Admitted From: Emergency Dept Plans for Post Hospital Care: Home History of present illness: Ms. Cerrato is a 36 year old female with history of IVDA who left AMA earlier today as she was "sick of waiting for a PICC". She only left for 2 hours and came back. Says she realized after leaving and talking to her family that her hand is more important than any frustration she may have had waiting for a PICC line. She has been hospitalized since 09/03 status post I&D of left long finger on 09/05. Has been on Vanco and zosyn. Orthopedics were following. She left and came back as she says the pain is worsening. She denies using any drugs while outside the hospital. She had work up in the ED that was mostly unremarkable. K+ was 3.4. HR 101 in the ED. BP 135/92. Cultures have been negative to date. Denies fever/chills/headache/blurry vision/nausea/vomiting/ chest pain/shortness of breath/abdominal pain/urinary symptoms/neurological symptoms. Past Med Surg Social Fam HX - Past Medical History Medical history: COPD, hepatitis Psychiatric history: no psych history - Past Surgical History Surgical History: - Social History Smoking Status: Current every day smoker Smokeless Tobacco Status: No Alcohol use: none Drug use: IV Drug Use Internal Medicine - H&P: Meds Venlafaxine XR (24 HR) [Effexor XR] 75 mg PO DAILY 08/19/16 [History] Ferrous Sulfate [Iron] 325 mg PO DAILY 09/03/17 [History] Gabapentin [Neurontin] 800 mg PO TID 09/03/17 [History] cloNIDine HCl [CloNIDine HCl] 0.1 mg PO BID 09/03/17 [History] 3 Allergy/AdvReac Type Severity Reaction Status Date / Time linezolid [From Zyvox] Allergy Hives Verified 09/06/17 19:34 All Systems PM: A 10-system review of systems was performed and is negative for pertinent findings except as documented above in the HPI. Review of systems: All systems reviewed are negative except for as mentioned above - Constitutional Vitals: Temp Pulse Resp BP Pulse Ox 98.3 F 101 20 135/92 99 09/06/17 19:30 09/06/17 19:30 09/06/17 19:30 09/06/17 19:30 09/06/17 19:30 Exam: GEN: NAD HEENT: AT, NC, No cyanosis, oral mucosa is moist, No JVD Lymphatics: No lymphadenoapthy Eyes: Extrocular muscles intact, anicteric CVS:RRR. S1, S2, No m/r/g RESP: CTAB ABD: Soft, NT, ND, +BS EXT: No edema, No rashes, 2+ DP. left middle finger with small incision noted. No discharge. Has small surrounding erythema. Unable to flex it. NEURO: Nonfocal, CN II-XII intact, No focal motor or sensory deficits Psych: Cooperative, Not anxious or depressed Internal Med - H&P Results - Labs CBC & Chem 7: 09/06/17 19:54 09/06/17 19:54 Labs: Short CBC 09/06/17 Range/Units 19:54 WBC 7.2 (4.3-11.1) K/mcL Hgb 12.6 (11.5-15.4) g/dL Hct 39.0 (35.3-44.9) % Plt Count 339 (140-400) K/mcL Neutrophils # 4.8 (1.6-8.9) K/mcL BMP 09/06/17 19:54 Sodium 137 Potassium 3.3 L Chloride 105 Carbon Dioxide 24 BUN 9 Creatinine 0.71 Glucose 96 Calcium 9.3
[2017-09-06] MEDS ORDERED: Naloxone 0.4 MG/ML INJ IVP PRN (20:41)
[2017-09-06] MEDS ORDERED: Acetaminophen 325 MG TABLET PO PRN (20:41)
[2017-09-06 21:13] LABS: Amphetamine Screen,Urine Negative ng/mL (Cutoff=1000); Barbiturate Screen,Urine Negative ng/mL (Cutoff=200); Benzodiazepines Screen,Urine Negative ng/mL (Cutoff=200); Cannabinoid Screen,Urine Negative ng/mL (Cutoff = 50); Cocaine Screen,Urine Negative ng/mL (Cutoff= 300); Opiate Screen,Urine Positive ng/mL (Cutoff=300); Phencyclidine Screen,Urine Negative ng/mL (Cutoff=25)
[2017-09-06] MEDS: *HR* Heparin 5,000 UNIT/ML VIAL SQ SCH (22:27)
[2017-09-07] MEDS: Piperacillin/Tazobactam 3.375 GM in 0.9 % Sodium Chloride Mini Bag 100 ML IVPB SCH ×3 (05:21→20:21)
[2017-09-07] MEDS: *HR* Heparin 5,000 UNIT/ML VIAL SQ SCH ×3 (05:26→20:25)
[2017-09-07] MEDS: *HR* HYDROcodone/Acet 5/325 mg TABLET PO PRN ×2 (06:57→13:19)
[2017-09-07 08:38] LABS: Basophils % 0.6 %; Eosinophils # 0.2 K/mcL (0.0-0.6); Eosinophils % 3.7 %; Hematocrit 40.2 % (35.3-44.9); Immature Granulocytes % 0.2 % (0-4); Lymphocytes # 1.4 K/mcL (0.6-4.6); Lymphocytes % 29.3 %; Mean Corpuscular HGB Conc 32.3 g/dL (31.6-35.5); Mean Corpuscular Hemoglobin 26.9 pg (28.0-33.3); Mean Corpuscular Volume 83.1 fL (83.0-100.0); Mean Platelet Volume 9.7 fL (9.4-12.4); Monocytes # 0.2 K/mcL (0.0-1.3); Monocytes % 4.2 %; Platelet Count 294 K/mcL (140-400); Red Blood Count 4.84 M/mcL (3.82-4.97); Red Cell Distribution Width 15.6 % (11.5-14.5)
[2017-09-07 08:57] LABS: BUN/Creatinine Ratio 13 (6-26); Blood Urea Nitrogen 10 mg/dL (6-20); Calcium 9.2 mg/dL (8.6-10.3); Carbon Dioxide 23 mEq/L (23-29); Chloride 108 mEq/L (98-107); Glucose 95 mg/dL (70-105); Magnesium 1.8 mg/dL (1.6-2.6); Osmolality,Calculated 289 (280-300); Potassium 3.4 mEq/L (3.5-5.1); Sodium 140 mEq/L (136-145); eGFR For African Americans > 60 (> 60); eGFR For Non-African Americans > 60 (> 60)
[2017-09-07 09:50] LABS: Acinetobacter baumannii by PCR Not Detected (Not Detect); Candida albicans by PCR Not Detected (Not Detect); Candida glabrata by PCR Not Detected (Not Detect); Candida krusei by PCR Not Detected (Not Detect); Candida parapsilosis by PCR Not Detected (Not Detect); Candida tropicalis by PCR Not Detected (Not Detect); Enterococcus by PCR Not Detected (Not Detect); Escherichia coli by PCR Not Detected (Not Detect); Klebsiella oxytoca by PCR Not Detected (Not Detect); Klebsiella pneumoniae by PCR Not Detected (Not Detect); Pseudomonas aeruginosa by PCR Not Detected (Not Detect); Serratia marcescens by PCR Not Detected (Not Detect); Staphylococcus aureus by PCR Not Detected (Not Detect); Streptococcus agalactiae(B)PCR Not Detected (Not Detect); Streptococcus by PCR ***DETECTED*** (Not Detect); Streptococcus pneumoniae PCR Not Detected (Not Detect); Streptococcus pyogenes (A) PCR Not Detected (Not Detect); blaKPC Carbapenem-Resist Gene Not Detected (Not Detect); mecA Methicillin-Resist Gene Not Detected (Not Detect); vanA/B Vancomycin-Resist Genes Not Detected (Not Detect)
--- NOTE | 2017-09-07 10:52 | Orthopedics Progress Note ---
Date of Encounter: 09/07/17 Time of Encounter: 10:52 Subjective Interval history: S: Pt s/p I&D L middle finger 2 days ago. Left AMA yesterday and then was readmitted. Finger pain improved from prior to surgery AFVSS Blood ctx Gram positive cocci GEN - NAD LUE Minimal drainage from incision site with no gross purulence Mild surrounding erythema with some TTP, no purulent materal expressed DNVI POD#2 s/p I&D L middle finger -Atbx per ID -Continue daily dressing changes -No current plans for further surgery Objective Vital signs: Vital Signs Temp Pulse Resp BP Pulse Ox 09/07/17 06:37 97.8 F 65 16 111/67 99 09/06/17 23:31 98.5 F 68 16 112/72 98 09/06/17 21:43 97.5 F L 71 16 106/70 97 09/06/17 21:28 18 130/90 Intake and Output 09/06/17 09/07/17 09/07/17 22:59 07:59 15:59 Intake Total 220 / 220 Balance 220 / 220 Intake: IV Fluids 100 / 100 Zosyn 3.375 GM In 0.9 % Sodium 100 / 100 Chloride (Mini-Bag +) 100 ML @ 25 mls/hr IVPB Q8H DANIELE Rx#: [id number] Oral 120 / 120 Other: Meal Breakfast Percent of Meal Consumed 80% # Voids Weight - Labs CBC & BMP: 09/07/17 07:10 09/07/17 07:10 Labs: Abnormal lab results MCH 26.9 pg (28.0-33.3) L 09/07/17 07:10 RDW 15.6 % (11.5-14.5) H 09/07/17 07:10 Potassium 3.4 mEq/L (3.5-5.1) L 09/07/17 07:10 Chloride 108 mEq/L (98-107) H 09/07/17 07:10 Urine Opiates Screen Positive ng/mL (Cepica=434) H 09/06/17 20:51 Streptococcus sp PCR DETECTED (Not Detect) A 09/06/17 20:51 Consult Discharge Plan - Plan Referrals: Mert Villa, [employer]ER [Primary Care Provider] -
--- NOTE | 2017-09-07 11:22 | Internal Med Progress Note ---
Date of Encounter: 09/07/17 Time of Encounter: 11:20 - Assessment and plan (1) Abscess of left middle finger Current Visit: Yes Status: Acute Assessment and plan: Continue IV Zosyn for now. Blood cultures are positive for Streptococcus preliminary. Once the cultures are finalized and speciated with sensitivities, tailor antibiotics accordingly. Orthopedics following and recommendations appreciated (2) IV drug abuse Current Visit: Yes Status: Acute Assessment and plan: Patient has a long-standing drug history and has expressed interest in inpatient rehabilitation. We will consider social insurance adviser during the weekday. Questionable compliance. Patient did leave AGAINST MEDICAL ADVICE yesterday but then came back due to pain - Time Spent With Patient 25 - 35 minutes - Subjective Interval history: Patient had left AMA yesterday and has now been readmitted. She complains of moderate pain in the left hand. She denies any fevers or chills overnight - Constitutional Vitals: Temp Pulse Resp BP Pulse Ox 98.8 F 73 16 119/76 99 09/07/17 10:56 09/07/17 10:56 09/07/17 10:56 09/07/17 10:56 09/07/17 10:56 Exam: GENERAL: Alert, moderate distress, cooperative EYES: PERRLA, EOMI EARS: External ears normal, canals clear OROPHARYNX: Lips, mucosa, and tongue normal. Teeth and gums normal. Oropharynx normal. NECK: No jugulovenous distention, No carotid bruits, Carotid pulse normal contour, Supple LUNGS: Lungs clear to auscultation, Good diaphragmatic excursion CARDIAC: Normal S1 and S2; no rubs, murmurs, or gallops ABDOMEN: Abdomen soft, non-tender, BS normal, No masses or organomegaly EXTREMITIES: Left hand is bandaged-DrJaelyn moved due to patient preference NEURO: Gait normal. Reflexes normal and symmetric. Sensation grossly intact, Cranial nerves II-XII intact PULSES: 2+ radial, 2+ carotid Rest of the exam is non contributory Internal Medicine: Result - Labs CBC & Chem 7: 09/07/17 07:10 09/07/17 07:10 Labs: Short CBC 09/07/17 Range/Units 07:10 WBC 4.8 (4.3-11.1) K/mcL Hgb 13.0 (11.5-15.4) g/dL Hct 40.2 (35.3-44.9) % Plt Count 294 (140-400) K/mcL Neutrophils # 3.0 (1.6-8.9) K/mcL BMP 09/07/17 07:10 Sodium 140 Potassium 3.4 L Chloride 108 H Carbon Dioxide 23 BUN 10 Creatinine 0.76 Glucose 95 Calcium 9.2 Consult Discharge Plan - Plan Referrals: Mert Villa, CASH POSTING CLERK [Primary Care Provider] -
[2017-09-07] MEDS ORDERED: Aminoglycoside Consult 1 EACH MC ONE (12:03)
[2017-09-07] MEDS: Gabapentin 400 MG CAPSULE PO SCH ×3 (12:27→20:21)
[2017-09-07] MEDS: Venlafaxine XR (24 HR) 75 MG CAP.ER.24H PO SCH (12:28)
[2017-09-07] MEDS: cloNIDine HCl 0.1 MG TABLET PO SCH (20:21)
[2017-09-08] MEDS: *HR* HYDROcodone/Acet 5/325 mg TABLET PO PRN ×2 (00:32→09:26)
[2017-09-08] MEDS: Piperacillin/Tazobactam 3.375 GM in 0.9 % Sodium Chloride Mini Bag 100 ML IVPB SCH (05:15)
[2017-09-08] MEDS: *HR* Heparin 5,000 UNIT/ML VIAL SQ SCH (05:18)
[2017-09-08 07:14] VITALS: BP 116/78
--- NOTE | 2017-09-08 07:38 | Orthopedics Progress Note ---
Date of Encounter: 09/08/17 Time of Encounter: 07:36 Subjective Interval history: S: Left long finger pain improved No new complaints O: AFeb/VSS Left long finger wound with minimal drainage No purulence Improved swelling Redness almost completely resolved Improved mobility A: Left long finger infection, responding well to abx after operative I and D P: Daily dressing changes and soapy soaks Orthopedically stable Follow up in 1 week for a wound check Objective Vital signs: Vital Signs Temp Pulse Resp BP Pulse Ox 09/08/17 06:34 98.1 F 78 16 116/78 99 09/08/17 01:25 97.9 F 70 16 116/74 98 09/07/17 19:39 98.4 F 79 17 138/82 99 09/07/17 15:44 98.9 F 77 17 121/77 100 09/07/17 10:56 98.8 F 73 16 119/76 99 Intake and Output 09/07/17 09/07/17 09/08/17 15:59 23:59 07:59 Intake Total 220 / 220 100 / 100 350 / 350 Balance 220 / 220 100 / 100 350 / 350 Intake: IV Fluids 100 / 100 100 / 100 350 / 350 Zosyn 3.375 GM In 0.9 % Sodium 100 / 100 100 / 100 100 / 100 Chloride (Mini-Bag +) 100 ML @ 25 mls/hr IVPB Q8H DANIELE Rx#: [id number] Vancocin 1,250 MG In 0.9 % 250 / 250 Sodium Chloride 250 ML @ 166.67 mls/hr IVPB Q12H DANIELE Rx#: [id number] Oral 120 / 120 Other: Meal Breakfast Dinner Percent of Meal Consumed 80% 60% # Voids 1 - Labs CBC & BMP: 09/07/17 07:10 09/07/17 07:10 Labs: Abnormal lab results MCH 26.9 pg (28.0-33.3) L 09/07/17 07:10 RDW 15.6 % (11.5-14.5) H 09/07/17 07:10 Potassium 3.4 mEq/L (3.5-5.1) L 09/07/17 07:10 Chloride 108 mEq/L (98-107) H 09/07/17 07:10 Urine Opiates Screen Positive ng/mL (Cuzbmw=206) H 09/06/17 20:51 Streptococcus sp PCR DETECTED (Not Detect) A 09/06/17 20:51 Consult Discharge Plan - Plan Referrals: Mert Villa, [place] [Primary Care Provider] -
--- NOTE | 2017-09-08 08:37 | Discharge Summary ---
Orders not resulted at time of discharge: Pending orders 09/08/17 11:00 Vancomycin,Trough Timed Date of Encounter: 09/08/17 Time of Encounter: 08:36 - Discharge Diagnosis (1) Abscess of left middle finger Priority: Primary Status: Acute Comments: Left middle finger abscess/cellulitis status post I&D Culture positive for possible Streptococcus likely a contaminant (2) Cellulitis of left middle finger Priority: Primary Status: Acute (3) IV drug abuse Priority: Secondary Status: Acute (4) Hx of bacterial endocarditis Priority: Secondary Status: Acute (5) Hepatitis C Priority: Secondary Status: Acute Qualifiers: Viral hepatitis chronicity: unspecified Hepatic coma status: without hepatic coma Qualified Code(s): B19.20 - Unspecified viral hepatitis C without hepatic coma (6) Septic embolism Priority: Secondary Status: Acute Comments: History of septic emboli in the past (7) IV drug abuse Priority: Secondary Status: Acute Hospital course: Ms. Cerrato is a 36 year old female with a past medical history of IV drug abuse, hepatitis C, MRSA endocarditis and septic emboli, COPD not oxygen dependent, tobacco abuse who left AMA 2 days ago as she was "sick of waiting for a PICC". She only left for 2 hours and came back. Says she realized after leaving and talking to her family that her hand is more important than any frustration she may have had waiting for a PICC line. She has been hospitalized since 09/03 status post I&D of left long finger on 09/05. Has been on Vanco and zosyn. Orthopedics were following. She had work up in the ED that was mostly unremarkable. K+ was 3.4. HR 101 in the ED. BP 135/92. Has received 6 days of antibiotics, blood culture is growing possible Streptococcus which may be a contaminant, patient does not need a PICC line at this point. She will receive the last dose of IV antibiotics and will be able to be discharged. Orthopedic surgery will see her in one week Time spent discussing smoking cessation with patient: 3 to 10 minutes - Time Spent with Patient Total time spent providing and/or coordinating discharge services: Greater than 30 minutes (40 min) - Discharge Medications Prescriptions: Doxycycline 100 mg PO BID #10 capsule Home Medications: Venlafaxine XR (24 HR) [Effexor XR] 75 mg PO DAILY 08/19/16 [History] Ferrous Sulfate [Iron] 325 mg PO DAILY 09/03/17 [History] Gabapentin [Neurontin] 800 mg PO TID 09/03/17 [History] cloNIDine HCl [CloNIDine HCl] 0.1 mg PO BID 09/03/17 [History] Doxycycline 100 mg PO BID #10 capsule 09/08/17 [Rx] Allergies/Adverse Reactions: 3 Allergy/AdvReac Type Severity Reaction Status Date / Time linezolid [From Zyvox] Allergy Hives Verified 09/07/17 10:10 Date of admission: 09/06/17 21:09 Primary care physician: Mert Villa CNP Consults: 09/06/17 21:58 Consult to Scholarship Counselor [CONS] Routine Reason for SW Consult: pt may needs needs at d/c - Constitutional Vitals: Temp Pulse Resp BP Pulse Ox 98.1 F 78 16 116/78 99 09/08/17 06:34 09/08/17 06:34 09/08/17 06:34 09/08/17 06:34 09/08/17 06:34 General appearance: Present: A&O X 3 Exam: Left middle finger dorsal wound with minimal erythema and clear fluid draining less than half a centimeter - Head Head exam: Present: atraumatic, normocephalic - Eye Eye exam: Present: PERRL, conjuntiva pink, sclera anicteric Pupils: Present: PERRL - Neck Neck exam general surgery: Present: supple, trachea midline. Absent: lymphadenopathy - Respiratory Respiratory exam: Present: CTAB. Absent: accessory muscle use, rales, rhonchi, wheezes - Cardiovascular Cardiovascular exam: Present: RRR, +S1, +S2. Absent: diastolic murmur, gallop, rubs, systolic murmur - GI/Abdominal GI/Abdominal exam: Present: normal bowel sounds, soft, no peritoneal signs. Absent: distended, tenderness - Extremities Exam Extremities exam: Present: warm, radial pulses palpable and symmetrical. Absent : calf tenderness, cyanotic, pedal edema - Neurological Exam Neurological exam: Present: CN II-XII intact, oriented X3, no focal deficits. Absent: pronater drift, facial droop, speech deficit - Skin Skin exam: Present: dry, intact - Patient Status Disposition: Home, Self-Care Condition: Good Overall status at discharge: patient is back to baseline - Discharge Instructions Follow Up With: Mert Villa, [place] [Primary Care Provider] - Additional Instructions: Follow-up with orthopedic surgery and primary care physician in one week, complete 5 more days of doxycycline. Quit smoking, avoid IV drugs. - Diet and Activity Activity: resume usual activities as tolerated Diet: regular diet
[2017-09-08] MEDS: Gabapentin 400 MG CAPSULE PO SCH (09:26)
[2017-09-08] MEDS: Venlafaxine XR (24 HR) 75 MG CAP.ER.24H PO SCH (09:26)
[2017-09-08] MEDS: cloNIDine HCl 0.1 MG TABLET PO SCH (09:26)
== END 2017-09-08 12:04 | disposition home or self-care (01) | DRG 383 ==
LOC: EMEROO 19:28 → 3NENU 21:09
PROVIDERS: ADMIT Internal Medicine; ATTEND Internal Medicine

== ENCOUNTER 2017-11-27 22:18 | Observation (INO) ==
--- NOTE | 2017-11-27 22:39 | Emergency Department Note ---
START Narrative - START START: I examined this patient and my medical decision-making was reviewed with the Resident Physician. I agree with the documented findings, disposition and treatment plan as described except to the extent set forth below. 37-year-old female presents emergency room for right lower leg redness and swelling. Patient attempted to inject IV heroin but was unable to get into her vein and the posterior aspect of the right calf. She has a long history of IV drug use. History of endocarditis. She admits to fevers today. She attempted to inject herself 3 days ago and noted the redness the day after and this very region where she injected the needle. The redness has spread proximally. It appears cellulitic. We will place an IV and check lab work and then start her on IV vancomycin. Patient will need to be admitted due to her history.
[2017-11-27] MEDS ORDERED: 0.9 % Sodium Chloride 1,000 ML IVC ONE (22:41)
[2017-11-27] MEDS ORDERED: Ketorolac 15 MG/ML VIAL IVP ONE (22:44)
[2017-11-28 00:03] LABS: Basophils % 0.2 %; Eosinophils # 0.2 K/mcL (0.0-0.6); Eosinophils % 1.6 %; Hematocrit 35.7 % (35.3-44.9); Hemoglobin 11.7 g/dL (11.5-15.4); Immature Granulocytes % 0.4 % (0-4); Lymphocytes % 19.7 %; Mean Corpuscular HGB Conc 32.8 g/dL (31.6-35.5); Mean Corpuscular Hemoglobin 27.4 pg (28.0-33.3); Mean Corpuscular Volume 83.6 fL (83.0-100.0); Mean Platelet Volume 9.3 fL (9.4-12.4); Monocytes # 0.4 K/mcL (0.0-1.3); Monocytes % 4.1 %; Neutrophils # 7.7 K/mcL (1.6-8.9); Platelet Count 243 K/mcL (140-400); Red Blood Count 4.27 M/mcL (3.82-4.97); Red Cell Distribution Width 14.9 % (11.5-14.5)
[2017-11-28 00:19] LABS: BUN/Creatinine Ratio 18 (6-26); Blood Urea Nitrogen 13 mg/dL (6-20); Calcium 8.9 mg/dL (8.6-10.3); Carbon Dioxide 26 mEq/L (23-29); Chloride 99 mEq/L (98-107); Glucose 92 mg/dL (70-105); Osmolality,Calculated 276 (280-300); Potassium 3.6 mEq/L (3.5-5.1); Sodium 133 mEq/L (136-145); eGFR For African Americans > 60 (> 60); eGFR For Non-African Americans > 60 (> 60)
--- NOTE | 2017-11-28 00:33 | Emergency Department Note ---
Disposition Clinical Impression: Cellulitis Qualifiers: Site of cellulitis: extremity Site of cellulitis of extremity: lower extremity Laterality: right Qualified Code(s): L03.115 - Cellulitis of right lower limb Disposition: Admitted As Inpatient Condition: Fair Referrals: Mert Villa HAMMER MILL OPERATOR [Primary Care Provider] - Time of Disposition: 00:43 General Adult HPI - General Chief complaint: ED Extremity Injury, Lower Stated complaint: rt leg swelling Time Seen by Provider: 11/27/17 22:24 Source: patient Limitations: no limitations Nursing Notes Reviewed: Yes Vital Signs Reviewed: Yes - History of Present Illness HPI Narrative: 37 she will female presents to the emergency department with concern for right lower extremity erythema, swelling, fever after missing of pain 2 days ago while attempting to inject heroin. Patient states that this has happened in the past. Patient has extensive history of IV drug abuse with infective endocarditis. Patient states that became more erythematous today and started spreading past the injection site. Patient does not think that the needle broke off in her leg. Patient denies any cough, hemoptysis, shortness of breath , chest pain, chest pressure, chest tightness. Pain Scale: 8 - Related Data Home Medications Medication Instructions Recorded Confirmed Venlafaxine XR (24 HR) [Effexor XR] 75 mg PO DAILY 08/19/16 11/27/17 Gabapentin [Neurontin] 800 mg PO TID 09/03/17 11/27/17 cloNIDine HCl [CloNIDine HCl] 0.1 mg PO BID 09/03/17 11/27/17 Multivit-Min/FA/Lycopen/Lutein [A 1 tab PO DAILY 11/27/17 11/27/17 Thru Z Select Multivit Tab] Trazodone HCl 100 mg PO HS 11/27/17 11/27/17 hydrOXYzine pamoate [HydrOXYzine 50 mg PO TID PRN 11/27/17 11/27/17 Pamoate] Allergies Allergy/AdvReac Type Severity Reaction Status Date / Time linezolid [From Zyvox] Allergy Hives Verified 09/07/17 10:10 All systems ED: reviewed and negative except as stated. Review of Systems: As Per HPI Constitutional: Reports: fever Cardiovascular: Denies: chest pain, palpitations Respiratory: Denies: cough, dyspnea Gastrointestinal: Denies: abdominal pain, nausea, vomiting Genitourinary: Denies: urgency Musculoskeletal: Reports: other (Right lower extremity erythema and swelling). Denies: back pain Integumentary: Reports: rash Neurological: Denies: headache Past Medical History - Past Medical History Medical history: Reports: COPD, hepatitis Surgical history: Reports: Psychiatric history: Reports: anxiety - Social History Smoking Status: Current every day smoker Smokeless Tobacco Status: No Alcohol use: Reports: none Drug use: Reports: IV Drug Use Physical Exam - General Limitations: no limitations General appearance: alert - Head Head exam: atraumatic, normocephalic - Eye Eye exam: Present: EOMI. Absent: scleral icterus, conjunctival injection - ENT ENT exam: normal exam, normal oropharynx - Neck Neck exam: Present: trachea midline. Absent: tenderness - Chest Chest inspection: Present: normal inspection, symmetric chest wall rise - Respiratory Respiratory exam: Present: normal lung sounds bilaterally. Absent: respiratory distress - Cardiovascular Cardiovascular exam: Present: normal rhythm, tachycardia. Absent: systolic murmur, diastolic murmur - Abdominal Exam Abdominal exam: Present: soft, Non-Tender. Absent: distention, guarding, rebound - Extremities Exam Extremities exam: Present: other (Right medial aspect of the leg has erythema with swelling, no fluctuance, no crepitus, no palpable cords, neurovascularly intact) - Neurological Exam Neurological exam: Present: alert, oriented X3 - Psychiatric Psychiatric exam: Present: anxious - Skin Skin exam: Present: other (Tract haley on the upper and lower extremities bilaterally) Course Vital Signs Temperature 100.1 F H 11/27/17 22:20 Pulse Rate 114 11/27/17 22:20 Respiratory Rate 18 11/27/17 22:20 Blood Pressure 134/88 11/27/17 22:20 O2 Sat by Pulse Oximetry 94 11/27/17 22:20 Temperature 100.1 F H 11/27/17 22:20 Pulse Rate 115 11/27/17 22:33 Respiratory Rate 22 11/27/17 22:33 Blood Pressure 132/84 11/27/17 22:33 O2 Sat by Pulse Oximetry 96 11/27/17 22:33 Oxygen Delivery Oxygen Delivery Room Air Medical Decision Making - MDM Narrative Medical decision making narrative: 37-year-old female presents emergency department with concern for right lower extremity swelling, erythema, fever over the last 2 days. Physical exam revealed a warm lower extremity with erythema and swelling with no palpable cords. At this time, clinically, this is most likely cellulitis. Do not suspect DVT. We obtained x-ray of the right lower extremity and this did not reveal evidence of a foreign body. Patient was borderline febrile here and tachycardic. We obtained a CBC and BMP. The initial labs clotted off. Procedure: Under sterile conditions, I obtained a right femoral vein venipuncture with my attending, Dr. Guo at bedside, and withdrew 12 mL of blood. This was obtained on the first stick. There was no complications. Hemostasis was controlled with direct pressure. Gauze dressing was placed. Labs are pending at time of admission. Patient was given IV vancomycin as well as 1 L of fluids here. She was also given Toradol for pain. Patient agreed for admission to the hospital for her cellulitis. I feel that this patient is not a candidate for outpatient therapy and her condition could worsen if not treated inpatient. Hospitalist agreed to accept patient for further treatment. Tibia/Fibula X-Ray 11/27/17 22:37 IMPRESSION: Subcutaneous edema without acute or focal bony abnormality. D/ / Jeaneth Savage Cha, MD / Jeaneth Savage Cha, MD Interpreting Provider: Jeaneth Savage Cha, MD Vital Signs Temperature 100.1 F H 11/27/17 22:20 Pulse Rate 114 11/27/17 22:20 Respiratory Rate 18 11/27/17 22:20 Blood Pressure 134/88 11/27/17 22:20 O2 Sat by Pulse Oximetry 94 11/27/17 22:20 Temperature 100.1 F H 11/27/17 22:20 Pulse Rate 105 11/27/17 23:56 Respiratory Rate 16 11/27/17 23:56 Blood Pressure 128/68 11/27/17 23:56 O2 Sat by Pulse Oximetry 97 11/27/17 23:56 Oxygen Delivery Oxygen Delivery Room Air
[2017-11-28] MEDS ORDERED: Naloxone 0.4 MG/ML INJ IVP PRN (01:32)
[2017-11-28] MEDS ORDERED: Vancomycin 0 MG in 0.9 % Sodium Chloride 250 ML IVPB SCH (02:00)
[2017-11-28] MEDS ORDERED: Isovue-370 500 ML INFUS..BTL IV ONE (02:05)
--- NOTE | 2017-11-28 02:10 | Internal Med History&Physical ---
Date of Encounter: 11/28/17 Time of Encounter: 01:40 Internal Medicine - H&P: HPI Chief complaint: Right lower extremity pain, swelling and redness Admitted From: Emergency Dept Plans for Post Hospital Care: Home History of present illness: Ms. Cerrato is a 37 year old female patient with history of IV drug abuse and prior infective endocarditis presented to the ER with complaints of pain and swelling in her right lower extremity. Symptoms began after she missed a vein while trying to inject heroin 3 days back. She then developed severe swelling and pain over the next 2 days and it has been progressively worsening. She is in severe pain currently. She is also had fevers. She denies using any heroin since this attempt. No nausea or vomiting. No chest pain. No shortness of breath. Past Med Surg Social Fam HX - Past Medical History Attestation: Yes The following information was validated with the patient. Source: patient Medical history: COPD, hepatitis Additional medical history: hepatitis C Psychiatric history: anxiety - Past Surgical History Surgical History: Additional surgical history: T&A - Social History Smoking Status: Current every day smoker Smokeless Tobacco Status: No Alcohol use: none Drug use: IV Drug Use - Family History Father Living Status: Still Living Hx Family Endocrine Disorder: Yes (dm) Internal Medicine - H&P: Meds Venlafaxine XR (24 HR) [Effexor XR] 75 mg PO DAILY 08/19/16 [History] Gabapentin [Neurontin] 800 mg PO TID 09/03/17 [History] cloNIDine HCl [CloNIDine HCl] 0.1 mg PO BID 09/03/17 [History] Multivit-Min/FA/Lycopen/Lutein [A Thru Z Select Multivit Tab] 1 tab PO DAILY [History] Trazodone HCl 100 mg PO HS 11/27/17 [History] hydrOXYzine pamoate [HydrOXYzine Pamoate] 50 mg PO TID PRN 11/27/17 [History] 3 Allergy/AdvReac Type Severity Reaction Status Date / Time linezolid [From Zyvox] Allergy Hives Verified 09/07/17 10:10 All Systems PM: A 10-system review of systems was performed and is negative for pertinent findings except as documented above in the HPI. - Constitutional Constitutional: fever(s), malaise, no chills, no night sweats - EENT Eyes: no change in vision, no discharge, no pain, no photophobia Ears: no ear discharge, no ear pain, no tinnitus Nose, mouth and throat: no dysphagia, no nasal discharge, no neck pain, no sore throat - Cardiovascular Cardiovascular ROS IM: no chest pain, no diaphoresis, no dyspnea, no lightheadedness, no palpitations, no syncope - Respiratory Respiratory: no cough, no dyspnea, no wheezing, no excessive phlegm production - Gastrointestinal Gastrointestinal: no abdominal pain, no diarrhea, no hematemesis, no hematochezia, no melena, no nausea, no vomiting - Genitourinary Genitourinary: no change in urinary stream, no dysuria, no flank pain, no hematuria - Musculoskeletal Musculoskeletal ROS IM: no numbness, no tingling Additional comments: Right leg pain - Integumentary Integumentary IM: erythema - Neurological Neurological ROS: no confusion, no convulsions, no focal weakness, no numbness, no tingling, no tremor(s) - Constitutional Vitals: Temp Pulse Resp BP Pulse Ox 100.1 F H 105 16 128/68 97 11/27/17 22:20 11/27/17 23:56 11/27/17 23:56 11/27/17 23:56 11/27/17 23:56 General appearance: Present: cooperative, A&O X 3, answers questions appropriately Exam: Moderate distress - Neck Neck exam general surgery: Present: supple, trachea midline. Absent: lymphadenopathy - Respiratory Respiratory exam: Present: CTAB. Absent: accessory muscle use, rales, rhonchi, wheezes - Cardiovascular Cardiovascular exam: Present: RRR, +S1, +S2. Absent: diastolic murmur, gallop, rubs, systolic murmur - GI/Abdominal GI/Abdominal exam: Present: normal bowel sounds, soft, no peritoneal signs. Absent: distended, tenderness - Extremities Exam Extremities exam: Present: tenderness, warm, radial pulses palpable and symmetrical. Absent: calf tenderness, cyanotic, pedal edema Additional comments: Erythema and swelling involving the right lower extremity extending up from the ankle up to her knee. More prominent in her lower right leg. Exquisitely tender. Swelling also prominent just over her medial malleolus. Patient not tolerating exam at this time due to severe pain. - Neurological Exam Neurological exam: Present: CN II-XII intact, oriented X3, no focal deficits. Absent: facial droop, speech deficit - Skin Skin exam: Present: dry, erythema (As described above), intact Internal Med - H&P Results - Labs CBC & Chem 7: 11/27/17 23:34 11/27/17 23:50 - Assessment and plan (1) Cellulitis Current Visit: Yes Status: Acute Assessment and plan: Acute cellulitis involving the right lower extremity. Will get CT scan of the right leg to better evaluate underlying tissues to look for any abscess or spread into deeper tissues. Continue IV antibiotics for now. Follow blood cultures. If cellulitis worsens, we will consult orthopedics for evaluation. Qualifiers: Site of cellulitis: extremity Site of cellulitis of extremity: lower extremity Laterality: right Qualified Code(s): L03.115 - Cellulitis of right lower limb (2) IV drug abuse Current Visit: Yes Status: Chronic Assessment and plan: Patient with history of IV drug abuse. At high risk for withdrawal. We will monitor for withdrawal symptoms. - Time Spent With Patient Total time spent is greater than 50% in coordination of care (as documented) at patient's floor/unit and/or counseling patient:
[2017-11-28] MEDS: Ringers Solution, Lactated 1,000 ML IVC SCH ×2 (03:29→18:55)
[2017-11-28] MEDS: OXYCODONE Oral CONC 10 MG/0.5 ML ORAL.SYG SL PRN ×3 (03:36→20:17)
[2017-11-28] MEDS: Ketorolac 30 MG/ML VIAL IVP PRN ×2 (08:27→18:56)
[2017-11-28] MEDS ORDERED: hydrOXYzine pamoate 25 MG CAPSULE PO PRN (10:25)
[2017-11-28] MEDS: Venlafaxine XR (24 HR) 75 MG CAP.ER.24H PO SCH (11:27)
[2017-11-28] MEDS: Gabapentin 400 MG CAPSULE PO SCH ×3 (11:28→20:18)
[2017-11-28] MEDS: traZODone 50 MG TABLET PO SCH (20:18)
[2017-11-29] MEDS: OXYCODONE Oral CONC 10 MG/0.5 ML ORAL.SYG SL PRN ×4 (03:26→21:16)
[2017-11-29] MEDS: Ketorolac 30 MG/ML VIAL IVP PRN (06:54)
--- NOTE | 2017-11-29 08:17 | Orthopedic Consult Note ---
Date of Encounter: 11/29/17 Time of Encounter: 08:16 History of Present Illness HPI: Ms. Cerrato is a 37 year old female Patient seen this morning for evaluation right leg synovitis. Patient has a history of IVDA had a CAT scan shows small abscess formation. On exam Right calf nontender Calf is soft Neurovascular intact Tenderness is more distal right Achilles area. Consultation placed with Dr. weston podiatry for evaluation. And treatment Past Med Surg Social Fam HX - Past Medical History Medical history: COPD, hepatitis Additional medical history: hepatitis C Psychiatric history: anxiety - Past Surgical History Surgical History: Additional surgical history: T&A - Social History Smoking Status: Current every day smoker Smokeless Tobacco Status: No Alcohol use: none Drug use: IV Drug Use - Family History Father Living Status: Still Living Hx Family Endocrine Disorder: Yes (dm) Medications and Allergies Venlafaxine XR (24 HR) [Effexor XR] 75 mg PO DAILY 08/19/16 [History] Gabapentin [Neurontin] 800 mg PO TID 09/03/17 [History] cloNIDine HCl [CloNIDine HCl] 0.1 mg PO BID 09/03/17 [History] Multivit-Min/FA/Lycopen/Lutein [A Thru Z Select Multivit Tab] 1 tab PO DAILY [History] Trazodone HCl 100 mg PO HS 11/27/17 [History] hydrOXYzine pamoate [HydrOXYzine Pamoate] 50 mg PO TID PRN 11/27/17 [History] 3 Allergy/AdvReac Type Severity Reaction Status Date / Time linezolid [From Zyvox] Allergy Hives Verified 09/07/17 10:10 All Systems Reviewed: The remainder of the systems were reviewed and are negative Physical Exam - Constitutional Vitals: Temp Pulse Resp BP Pulse Ox 98.5 F 73 16 130/85 99 11/29/17 06:54 11/29/17 06:54 11/29/17 06:54 11/29/17 06:54 11/29/17 06:54 Results - Labs Result Diagrams: 11/27/17 23:34 11/27/17 23:50 Labs: Abnormal lab results MCH 27.4 pg (28.0-33.3) L 11/27/17 23:34 RDW 14.9 % (11.5-14.5) H 11/27/17 23:34 MPV 9.3 fL (9.4-12.4) L 11/27/17 23:34 Sodium 133 mEq/L (136-145) L 11/27/17 23:50 Calculated Osmolality 276 (280-300) L 11/27/17 23:50 All other labs normal. Consult Discharge Plan - Plan Referrals: Mert Villa, [employer] [Primary Care Provider] -
[2017-11-29] MEDS: Venlafaxine XR (24 HR) 75 MG CAP.ER.24H PO SCH (09:25)
[2017-11-29] MEDS: Gabapentin 400 MG CAPSULE PO SCH ×3 (09:25→21:15)
[2017-11-29] MEDS: Ringers Solution, Lactated 1,000 ML IVC SCH (09:25)
[2017-11-29] MEDS: Multivit/Ca/Min/Fe/FA 1 TAB TABLET PO SCH (09:25)
[2017-11-29 11:14] LABS: Basophils % 0.2 %; Eosinophils # 0.1 K/mcL (0.0-0.6); Eosinophils % 1.7 %; Hematocrit 31.1 % (35.3-44.9); Hemoglobin 10.5 g/dL (11.5-15.4); Immature Granulocytes % 0.6 % (0-4); Lymphocytes % 18.8 %; Mean Corpuscular HGB Conc 33.8 g/dL (31.6-35.5); Mean Corpuscular Hemoglobin 27.9 pg (28.0-33.3); Mean Corpuscular Volume 82.7 fL (83.0-100.0); Mean Platelet Volume 10.2 fL (9.4-12.4); Monocytes # 0.2 K/mcL (0.0-1.3); Monocytes % 4.1 %; Platelet Count 185 K/mcL (140-400); Red Blood Count 3.76 M/mcL (3.82-4.97); Red Cell Distribution Width 14.6 % (11.5-14.5); Segmented Neutrophils % 74.6 %
[2017-11-29 13:11] LABS: BUN/Creatinine Ratio 22 (6-26); Blood Urea Nitrogen 12 mg/dL (6-20); Calcium 8.4 mg/dL (8.6-10.3); Carbon Dioxide 23 mEq/L (23-29); Chloride 108 mEq/L (98-107); Glucose 109 mg/dL (70-105); Osmolality,Calculated 284 (280-300); Potassium 4.2 mEq/L (3.5-5.1); Sodium 137 mEq/L (136-145); eGFR For African Americans > 60 (> 60); eGFR For Non-African Americans > 60 (> 60)
--- NOTE | 2017-11-29 16:42 | Internal Med Progress Note ---
Date of Encounter: 11/29/17 Time of Encounter: 12:10 - Assessment and plan (1) Cellulitis Current Visit: Yes Status: Acute Assessment and plan: Improving. CT right lower extremity showed a very small abscess along the gastrocnemius musculotendinous junction. 2 sets of blood cultures negative. Continue IV vancomycin. Orthopedic surgery consulted, recommended no surgical intervention at this time. Supportive care, pain control with when necessary Toradol and Tylenol. Right lower extremity elevation. Qualifiers: Site of cellulitis: extremity Site of cellulitis of extremity: lower extremity Laterality: right Qualified Code(s): L03.115 - Cellulitis of right lower limb (2) IV drug abuse Current Visit: Yes Status: Chronic Assessment and plan: Last drug use 2 days prior to presentation. At risk for drug withdrawal. Not on Suboxone at home. (3) Tobacco abuse Current Visit: Yes Status: Chronic Assessment and plan: Continue nicotine transdermal patch. (4) Anxiety and depression Current Visit: Yes Status: Chronic (5) Hepatitis C Current Visit: Yes Status: Chronic Qualifiers: Viral hepatitis chronicity: unspecified Hepatic coma status: without hepatic coma Qualified Code(s): B19.20 - Unspecified viral hepatitis C without hepatic coma - Time Spent With Patient Total time spent is greater than 50% in coordination of care (as documented) at patient's floor/unit and/or counseling patient: - Subjective Interval history: Reports feeling better. Improving right leg pain. Improving redness and swelling in right leg. No fever, chills. - Constitutional Vitals: Temp Pulse Resp BP Pulse Ox 98.5 F 66 17 110/60 98 11/29/17 15:43 11/29/17 15:43 11/29/17 15:43 11/29/17 15:43 11/29/17 15:43 General appearance: Present: cooperative, A&O X 3, answers questions appropriately - Respiratory Respiratory exam: Present: CTAB. Absent: accessory muscle use, rales, rhonchi, wheezes - Cardiovascular Cardiovascular exam: Present: RRR, +S1, +S2. Absent: diastolic murmur, gallop, rubs, systolic murmur - Extremities Exam Extremities exam: Present: full ROM, pedal edema, warm, radial pulses palpable and symmetrical. Absent: calf tenderness, cyanotic Additional comments: Right leg with improved anterior erythema and warmth. Persistent tenderness in distal posterior leg, above Achilles tendon. No localized swelling. 2+ distal pedal pulses palpable. Internal Medicine: Result - Labs CBC & Chem 7: 11/29/17 10:47 11/29/17 10:47 Labs: Short CBC 11/29/17 Range/Units 10:47 WBC 5.4 (4.3-11.1) K/mcL Hgb 10.5 L (11.5-15.4) g/dL Hct 31.1 L (35.3-44.9) % Plt Count 185 (140-400) K/mcL Neutrophils # 4.0 (1.6-8.9) K/mcL BMP 11/29/17 10:47 Sodium 137 Potassium 4.2 Chloride 108 H Carbon Dioxide 23 BUN 12 Creatinine 0.55 L Glucose 109 H Calcium 8.4 L Consult Discharge Plan - Plan Referrals: Mert Villa, MEDICAL OR SURGICAL INSTRUMENT MAKER [Primary Care Provider] -
--- NOTE | 2017-11-29 17:17 | Podiatry Consult Note ---
Date of Encounter: 11/29/17 Time of Encounter: 17:15 Assessment and Plan (1) Abscess of right leg Current visit: Yes Status: Acute Patient was instructed that she needs to have the abscess drained. Patient is ready for surgical intervention. Patient was instructed that she will undergo an incision and drainage of the right leg.Patient was informed of the risks and complications of surgery. These may include but are not limited to the following ; nerve damage, numbness, tingling, RSD/CRPS, loss of motor function, loss of toe, loss of limb, loss of life, ischemia, wound healing issues, infection, scarring, keloid formation, continued pain, arthritis, non-union, mal-union, prominent hardware, displaced hardware, reaction to hardware, the need to remove hardware, bruising, continued limp, the need for future surgery, over correction, under correction, chronic swelling, the need for physical therapy, stiffness of joints, ulceration, slow healing, wound dehiscence, reaction to implant, reaction to sutures. The patient was informed of the possible conservative treatments available which may include but are not limited to the following: Orthotics, bracing, non -weight bearing, physical therapy, padding, taping, steroid injections, NSAIDS, casting. The patient was given the option to seek a second opinion. It was explained that surgery is an art and not an exact science therefore results cannot be guaranteed. All the patients questions and concerns were addressed. Patient agrees to have the surgery despite the possible risks and complications. Absolutely no guarantees were given or implied. History of Present Illness Chief complaint: abscess, right leg HPI: Ms. Cerrato is a 37 year old female who relates an infection of her right leg and states that it is painful. Past Med Surg Social Fam HX - Past Medical History Medical history: COPD, hepatitis Additional medical history: hepatitis C Psychiatric history: anxiety - Past Surgical History Surgical History: Additional surgical history: T&A - Social History Smoking Status: Current every day smoker Smokeless Tobacco Status: No Alcohol use: none Drug use: IV Drug Use - Family History Father Living Status: Still Living Hx Family Endocrine Disorder: Yes (dm) Medications and Allergies Venlafaxine XR (24 HR) [Effexor XR] 75 mg PO DAILY 08/19/16 [History] Gabapentin [Neurontin] 800 mg PO TID 09/03/17 [History] cloNIDine HCl [CloNIDine HCl] 0.1 mg PO BID 09/03/17 [History] Multivit-Min/FA/Lycopen/Lutein [A Thru Z Select Multivit Tab] 1 tab PO DAILY [History] Trazodone HCl 100 mg PO HS 11/27/17 [History] hydrOXYzine pamoate [HydrOXYzine Pamoate] 50 mg PO TID PRN 11/27/17 [History] 3 Allergy/AdvReac Type Severity Reaction Status Date / Time linezolid [From Zyvox] Allergy Hives Verified 09/07/17 10:10 All Systems Reviewed: The remainder of the systems were reviewed and are negative Physical Exam - Constitutional Vitals: Temp Pulse Resp BP Pulse Ox 98.5 F 66 17 110/60 98 11/29/17 15:43 11/29/17 15:43 11/29/17 15:43 11/29/17 15:43 11/29/17 15:43 Exam: Pedal pulses palpable. Capillary fill time intact to digits 1 through 5 bilaterally. There are no open lesions, abrasions, or ulcerations. Sensation grossly intact to light touch to the level of the digits. Pain with palpation to the posterior aspect of the left leg in the area of the musculotendinous junction of the gastrocnemius/Achilles tendon. CT confirms abscess. Results - Labs Result Diagrams: 11/29/17 10:47 11/29/17 10:47 Labs: Abnormal lab results RBC 3.76 M/mcL (3.82-4.97) L 11/29/17 10:47 Hgb 10.5 g/dL (11.5-15.4) L 11/29/17 10:47 Hct 31.1 % (35.3-44.9) L 11/29/17 10:47 MCV 82.7 fL (83.0-100.0) L 11/29/17 10:47 MCH 27.9 pg (28.0-33.3) L 11/29/17 10:47 RDW 14.6 % (11.5-14.5) H 11/29/17 10:47 Chloride 108 mEq/L (98-107) H 11/29/17 10:47 Creatinine 0.55 mg/dL (0.60-1.20) L 06/02/18 10:47 Glucose 109 mg/dL (70-105) H 11/29/17 10:47 Calcium 8.4 mg/dL (8.6-10.3) L 11/29/17 10:47 H & H 11/29/17 Range/Units 10:47 Hgb 10.5 L (11.5-15.4) g/dL Hct 31.1 L (35.3-44.9) % All other labs normal. Consult Discharge Plan - Plan Referrals: Mert Villa, [employer] [employer] [Primary Care Provider] -
[2017-11-29] MEDS: traZODone 50 MG TABLET PO SCH (21:16)
[2017-11-30] MEDS: OXYCODONE Oral CONC 10 MG/0.5 ML ORAL.SYG SL PRN ×3 (02:58→20:42)
--- NOTE | 2017-11-30 07:35 | Anesthesia Evaluation PreOp ---
Date of Encounter: 11/30/17 Time of Encounter: 16:08 - Past History Planned Operation: I & D Right Leg Cardiac History: Other (vegetations on heart valve per patient) Pulmonary History: Smoker, COPD INFORMATION MANAGER History: Denies Any Significant HX Other Medical History: Hepatic (hepatitis C), Other (anxiety/depression) Anesthesia History: No Prior Anesthetic Complications, Past Anesthesia Test: Negative (11/30/2017) Alcohol Use: none Drug use: IV Drug Use (H/O heroin use--last used 6 days ago) Medications and Allergies Venlafaxine XR (24 HR) [Effexor XR] 75 mg PO DAILY 08/19/16 [History] Gabapentin [Neurontin] 800 mg PO TID 09/03/17 [History] cloNIDine HCl [CloNIDine HCl] 0.1 mg PO BID 09/03/17 [History] Multivit-Min/FA/Lycopen/Lutein [A Thru Z Select Multivit Tab] 1 tab PO DAILY [History] Trazodone HCl 100 mg PO HS 11/27/17 [History] hydrOXYzine pamoate [HydrOXYzine Pamoate] 50 mg PO TID PRN 11/27/17 [History] 3 Allergy/AdvReac Type Severity Reaction Status Date / Time linezolid [From Zyvox] Allergy Hives Verified 09/07/17 10:10 - Meds/Allergy Pre-op Review Medications Reviewed: Yes Allergies Reviewed: Yes Beta Blockers on Current Med List: No Anesthesia Results - Labs 11/29/17 10:47 11/29/17 10:47 Laboratory Tests 11/30/17 12:41 Urine Test Negative Anesthesia Exam Vital Signs/O2 Sat, Most Current Temp Pulse Resp BP Pulse Ox 98.0 F 63 15 108/68 99 11/30/17 07:00 11/30/17 07:00 11/30/17 07:00 11/30/17 07:00 11/30/17 07:00 Height: 5'3''/1.6m Weight: 145 lbs/66 kg NPO (# of Hours): 8 Pain Scale: 0 Pain Scale Used: Numeric (1 - 10) - HEENT Pupil (Motor): EOMI Mallampati: II Teeth: Normal Oral Opening: Greater than 3 - INFORMATION MANAGER LOC: Oriented INFORMATION MANAGER Motor: Normal RUE, Normal LUE, Normal RLE, Normal LLE, Normal Face INFORMATION MANAGER Sensory: Normal: RLE, LLE, Face, Deficit: RUE (neuropathy), LUE (neuropathy) - Cardiac Rhythm: Regular Murmur: None - Pulmonary Breath Sounds: bilateral Clear Respiratory Effort: Symmetrical Anesthesia Assess/Plan ASA Score: 3 Modified [place] Scale for Level of Consciousness: Cooperative, oriented, and tranquil Anesthetic Plan: General Monitoring Plan: Standard Monitors Recovery Plan: PACU
[2017-11-30] MEDS: Venlafaxine XR (24 HR) 75 MG CAP.ER.24H PO SCH (08:30)
[2017-11-30] MEDS: Gabapentin 400 MG CAPSULE PO SCH ×3 (08:30→20:43)
[2017-11-30] MEDS: Multivit/Ca/Min/Fe/FA 1 TAB TABLET PO SCH (08:30)
[2017-11-30] MEDS ORDERED: Aminoglycoside Consult 1 EACH MC ONE (12:57)
[2017-11-30] MEDS ORDERED: Bupivacaine/Clonidine Syringe 1 EACH SYRINGE ONE (15:10)
[2017-11-30] MEDS ORDERED: Albuterol 2.5 MG/3 ML NEBULIZER IH ONE (15:26)
--- NOTE | 2017-11-30 15:38 | Internal Med Progress Note ---
Date of Encounter: 11/30/17 Time of Encounter: 11:45 - Assessment and plan (1) Cellulitis Current Visit: Yes Status: Acute Assessment and plan: Improving. CT right lower extremity showed a very small abscess along the gastrocnemius musculotendinous junction. 2 sets of blood cultures negative. Continue IV vancomycin. Orthopedic surgery consulted, recommended no surgical intervention at this time. Podiatry consulted, plan for I&D of small abscess; Supportive care, pain control with when necessary Toradol and Tylenol. Right lower extremity elevation. Qualifiers: Site of cellulitis: extremity Site of cellulitis of extremity: lower extremity Laterality: right Qualified Code(s): L03.115 - Cellulitis of right lower limb (2) IV drug abuse Current Visit: Yes Status: Chronic Assessment and plan: Last drug use 2 days prior to presentation. At risk for drug withdrawal. Not on Suboxone at home. (3) Tobacco abuse Current Visit: Yes Status: Chronic Assessment and plan: Continue nicotine transdermal patch. (4) Anxiety and depression Current Visit: Yes Status: Chronic (5) Hepatitis C Current Visit: Yes Status: Chronic Qualifiers: Viral hepatitis chronicity: unspecified Hepatic coma status: without hepatic coma Qualified Code(s): B19.20 - Unspecified viral hepatitis C without hepatic coma - Time Spent With Patient Total time spent is greater than 50% in coordination of care (as documented) at patient's floor/unit and/or counseling patient: - Subjective Interval history: Reports feeling better. Improving right leg pain and swelling. No fever, chills. Awaiting I&D; - Constitutional Vitals: Temp Pulse Resp BP Pulse Ox 98.2 F 58 14 115/77 98 11/30/17 10:42 11/30/17 10:42 11/30/17 10:42 11/30/17 10:42 11/30/17 10:42 General appearance: Present: cooperative, A&O X 3, answers questions appropriately - Respiratory Respiratory exam: Present: CTAB. Absent: accessory muscle use, rales, rhonchi, wheezes - Cardiovascular Cardiovascular exam: Present: RRR, +S1, +S2. Absent: diastolic murmur, gallop, rubs, systolic murmur - GI/Abdominal GI/Abdominal exam: Present: normal bowel sounds, soft, no peritoneal signs. Absent: distended, tenderness - Extremities Exam Extremities exam: Present: warm, radial pulses palpable and symmetrical. Absent : calf tenderness, cyanotic, pedal edema Additional comments: right leg with significantly improved erythema, edema and induration over posterior leg; persistent swelling and induration in distal posterior leg, above Achilles tendon; Internal Medicine: Result - Labs CBC & Chem 7: 11/29/17 10:47 11/29/17 10:47 Consult Discharge Plan - Plan Referrals: Mert Villa, MANAGER [employer] [Primary Care Provider] -
[2017-11-30] MEDS ORDERED: *HR* Propofol 200 MG/20 ML VIAL IVP ONE (16:05)
[2017-11-30] MEDS ORDERED: Lidocaine -MPF 2% 2 ML VIAL ONE (16:05)
[2017-11-30] MEDS ORDERED: *HR* FentaNYL (PF) 100 MCG/2 ML VIAL ONE ×3 (16:05→17:49)
[2017-11-30] MEDS ORDERED: *HR* Midazolam HCl 2 MG/2 ML VIAL ONE (16:05)
[2017-11-30] MEDS ORDERED: *HR* Succinylcholine 200 MG/10 ML VIAL IVP ONE (16:05)
[2017-11-30] MEDS ORDERED: *HR* Rocuronium Bromide 50 MG/5 ML VIAL ONE (16:06)
[2017-11-30] MEDS ORDERED: Albuterol 2.5 MG/3 ML NEBULIZER ONE (16:10)
[2017-11-30] MEDS: *HR* FentaNYL (PF) 100 MCG/2 ML VIAL IVP PRN ×2 (17:52→18:02)
[2017-11-30] MEDS ORDERED: Ondansetron 4 MG/2 ML VIAL IVP ONE (17:58)
[2017-11-30] MEDS ORDERED: *HR* OxyCODONE Immed Rel 5 MG TABLET PO PRN (17:58)
[2017-11-30] MEDS ORDERED: Ondansetron 4 MG/2 ML VIAL ONE (18:01)
[2017-11-30] MEDS ORDERED: Dexamethasone 4 MG/ML VIAL ONE (18:01)
--- NOTE | 2017-11-30 18:23 | Anesthesia Evaluation Post Op ---
Date of Encounter: 11/30/17 Time of Encounter: 18:23 - Vital Signs Vital Signs: Vital Signs/O2 Sat, Most Current Temp Pulse Resp BP Pulse Ox 98.5 F 68 12 110/71 97 11/30/17 18:20 11/30/17 18:20 11/30/17 18:20 11/30/17 18:20 11/30/17 18:20 - Lungs Lungs: Clear Ascult./Percussion - Airway Airway: Non-obstructed - Cardiovascular Regular Rate - Mental Status Mental Status: Alert & Oriented, Answers Appropriately - Pain Pain Scale: 5 Pain Scale used: Numeric (1 - 10) - Nausea Vomiting Nausea Vomiting: Not Present - Hydration Hydration: NPO, Has not voided - Discharge PostOp Status: Transfer Patient to floor
[2017-11-30] MEDS: traZODone 50 MG TABLET PO SCH (20:44)
--- NOTE | 2017-12-01 | Operative Note ---
Date of procedure: 11/30/17 Pre-op diagnosis: Abscess, right leg Post-op diagnosis: same Procedure: Irrigation and debridement of abscess, right leg Anesthesia: ANTONIA Surgeon: Sage Cazares Was there an guest services assistant present: No Estimated blood loss (cc): 5 Specimen: Right leg cultures Condition: stable Disposition: PACU Procedure in Detail: The patient was administered IV antibiotics. The patient was transported to the operative room and placed prone on operating table. Following anesthesia the extremity was scrubbed prepped and draped in the usual aseptic fashion. A timeout was performed. An incision was made and deepened through subcutaneous tissue with care taken to identify and retract all vital neurovascular structures. The incision that was made was made on the posterior medial aspect of the right Achilles tendon. A very small abscess was noted along the medial aspect of the Achilles tendon. There is noted to be a mild amount of necrotic tissue associated with the infection, although the infection was relatively local on the abscess was essentially walled off. Cultures were obtained. Slight debridement was performed consisting of epidermis, dermis, subcutaneous, fascial tissue. The incision site was irrigated with copious amounts of normal saline and the decision was made to close it as infection was relatively well localized and well encapsulated. The site was loosely closed though and wet to dry dressings were applied. The patient tolerated the procedure and anesthesia well and was transported to the recovery room with vital signs stable and vascular status intact to both feet. The patient can remain weightbearing as tolerated by pain. The patient will need to keep the dressing intact. The patient will likely be okay to be discharged on 1-2 weeks of empiric antibiotics orally. The patient will follow up within 1 week of discharge in clinic.
[2017-12-01] MEDS: Ketorolac 30 MG/ML VIAL IVP PRN ×2 (00:44→10:30)
[2017-12-01 02:07] LABS: BUN/Creatinine Ratio 19 (6-26); Blood Urea Nitrogen 11 mg/dL (6-20); eGFR For African Americans > 60 (> 60); eGFR For Non-African Americans > 60 (> 60)
[2017-12-01] MEDS: OXYCODONE Oral CONC 10 MG/0.5 ML ORAL.SYG SL PRN ×2 (05:33→12:41)
[2017-12-01] MEDS: Venlafaxine XR (24 HR) 75 MG CAP.ER.24H PO SCH (08:32)
[2017-12-01] MEDS: Gabapentin 400 MG CAPSULE PO SCH (08:32)
[2017-12-01] MEDS: Multivit/Ca/Min/Fe/FA 1 TAB TABLET PO SCH (08:32)
[2017-12-01 10:49] VITALS: BP 123/76
--- NOTE | 2017-12-01 18:34 | Discharge Summary ---
Orders not resulted at time of discharge: Pending orders 11/30/17 17:05 Culture,Anaerobic [RM] Routine Culture,Wound [RM] Routine Date of Encounter: 12/01/17 Time of Encounter: 11:40 - Discharge Diagnosis (1) Cellulitis Priority: Primary Status: Acute Qualifiers: Site of cellulitis: extremity Site of cellulitis of extremity: lower extremity Laterality: right Qualified Code(s): L03.115 - Cellulitis of right lower limb (2) IV drug abuse Priority: Secondary Status: Chronic (3) Tobacco abuse Priority: Secondary Status: Chronic (4) Anxiety and depression Priority: Secondary Status: Chronic (5) Hepatitis C Priority: Secondary Status: Chronic Qualifiers: Viral hepatitis chronicity: unspecified Hepatic coma status: without hepatic coma Qualified Code(s): B19.20 - Unspecified viral hepatitis C without hepatic coma (6) Abscess of right leg Priority: Primary Status: Acute Hospital course: Ms. Cerrato is a 37 year old female with history of IV drug abuse, who was admitted with redness, pain and swelling in right leg after trying to inject heroine. She was not septic, started on IV vancomycin. CT right leg showed extensive soft tissue edema with a small abscess along the gastrocnemius musculotendinous junction. Orthopedic surgery and podiatry were consulted. She subsequently underwent irrigation and debridement of abscess. She was improving clinically and may have been discharged on oral antibiotics, wound care instructions and outpatient podiatry follow-up. However, she refused to wait for podiatry reevaluation and discharge paperwork and insisted on leaving as she knew how to take care of the wound. She left AGAINST MEDICAL ADVICE, alert and oriented, having understood the risks of leaving. - Time Spent with Patient Total time spent providing and/or coordinating discharge services: Greater than 30 minutes (20 min) - Discharge Medications Home Medications: Venlafaxine XR (24 HR) [Effexor XR] 75 mg PO DAILY 08/19/16 [History] Gabapentin [Neurontin] 800 mg PO TID 09/03/17 [History] cloNIDine HCl [CloNIDine HCl] 0.1 mg PO BID 09/03/17 [History] Multivit-Min/FA/Lycopen/Lutein [A Thru Z [employer] Multivit Tab] 1 tab PO DAILY [History] Trazodone HCl 100 mg PO HS 11/27/17 [History] hydrOXYzine pamoate [HydrOXYzine Pamoate] 50 mg PO TID PRN 11/27/17 [History] Allergies/Adverse Reactions: 3 Allergy/AdvReac Type Severity Reaction Status Date / Time linezolid [From Zyvox] Allergy Hives Verified 09/07/17 10:10 Date of admission: 11/28/17 00:38 Primary care physician: Mert Villa CNP Consults: 11/28/17 15:58 Consult to Orthopedic Surgery [CONS] Routine Consulting Provider: [facility] Reason for Consult: Right leg cellulitis and small abscess along gastrocnemius musculotendinous junction Call Completed: Yes Discharging clinician: Ivone García Anticipated date of discharge: 12/01/17 - Constitutional Vitals: Temp Pulse Resp BP Pulse Ox 98.6 F 72 16 123/76 98 12/01/17 10:48 12/01/17 10:48 12/01/17 10:48 12/01/17 10:48 12/01/17 10:48 General appearance: Present: cooperative, A&O X 3, answers questions appropriately - Cardiovascular Cardiovascular exam: Present: RRR, +S1, +S2. Absent: diastolic murmur, gallop, rubs, systolic murmur - Patient Status Disposition: Left Against Medical Advice Condition: Fair - Discharge Instructions Follow Up With: Mert Villa CNP [Primary Care Provider] - Additional Instructions: F/up with Podiatry in 1 week
== END 2017-12-01 12:58 | disposition left against medical advice (07) ==
LOC: EMEROO 22:18 → 3ANU 22:18 → SUATTDRO 11-28 00:38 → 3ANU 11-28 00:45
PROVIDERS: ADMIT Internal Medicine Hematology & Oncology; ATTEND Internal Medicine

== ENCOUNTER 2020-10-08 19:32 | Observation (INO) ==
[2020-10-08 20:54] LABS: Bacteria,Urine Few per hpf (None-Few); Bilirubin,Urine Moderate (Negative); Blood,Urine Negative (Negative); Clarity,Urine Turbid (Clear); Color,Urine Dark-Yellow (Yellow); Glucose,Urine (UA) Normal (Normal); Ketones,Urine Negative (Negative); Leukocyte Esterase,Urine Moderate (Negative); Nitrite,Urine Negative (Negative); Protein,Urine Trace mg/dL (Neg-Trace); Specific Gravity,Urine 1.023 (1.010-1.025); Squamous Epithelial Cell,Urine Moderate per hpf (None-Few); Urobilinogen,Urine >=8.0 mg/dL (Normal); WBC,Urine 30-50 per hpf (0-3)
[2020-10-08] MEDS ORDERED: Ondansetron 4 MG/2 ML VIAL IVP ONE (20:57)
[2020-10-08] MEDS ORDERED: Ketorolac 30 MG/ML VIAL IVP ONE (20:57)
[2020-10-08] MEDS ORDERED: 0.9 % Sodium Chloride 1,000 ML IV ONE (20:57)
[2020-10-08 21:17] LABS: Basophils # 0.1 K/mcL (0.0-0.2); Basophils % 0.5 %; Eosinophils # 0.3 K/mcL (0.0-0.6); Eosinophils % 3.2 %; Hematocrit 39.9 % (35.3-44.9); Hemoglobin 13.9 g/dL (11.5-15.4); Immature Granulocytes % 0.3 % (0-4); Lymphocytes # 5.3 K/mcL (0.6-4.6); Lymphocytes % 54.9 %; Mean Corpuscular HGB Conc 34.8 g/dL (31.6-35.5); Mean Corpuscular Hemoglobin 30.5 pg (28.0-33.3); Mean Corpuscular Volume 87.7 fL (83.0-100.0); Mean Platelet Volume 10.3 fL (9.4-12.4); Monocytes # 0.3 K/mcL (0.0-1.3); Monocytes % 2.7 %; Neutrophils # 3.7 K/mcL (1.6-8.9); Platelet Count 145 K/mcL (140-400); Red Blood Count 4.55 M/mcL (3.82-4.97); Red Cell Distribution Width 12.5 % (11.5-14.5); Segmented Neutrophils % 38.4 %; White Blood Count 9.6 K/mcL (4.3-11.1)
[2020-10-08 21:55] LABS: Reactive Lymphocytes Present (Not Present)
[2020-10-08 22:08] LABS: Alanine Aminotransferase 1173 Units/L (7-52); Albumin 3.2 g/dL (3.5-5.7); Alkaline Phosphatase 245 Units/L (34-104); Aspartate Amino Transferase 309 Units/L (13-39); BUN/Creatinine Ratio 13 (6-26); Bilirubin,Direct 1.6 mg/dL (0.0-0.2); Bilirubin,Total 2.6 mg/dL (0.3-1.0); Blood Urea Nitrogen 8 mg/dL (6-20); Calcium 9.1 mg/dL (8.6-10.3); Carbon Dioxide 33 mEq/L (23-29); Chloride 95 mEq/L (98-107); Globulin 3.3 g/dL (2.4-3.5); Glucose 150 mg/dL (70-105); Lipase 37 Units/L (11-82); Osmolality,Calculated 281 (280-300); Potassium 3.3 mEq/L (3.5-5.1); Sodium 135 mEq/L (136-145); Total Protein 6.5 g/dL (6.4-8.9); eGFR For African Americans > 60 (> 60); eGFR For Non-African Americans > 60 (> 60)
[2020-10-08] MEDS ORDERED: Potassium Chloride Elixir 20 MEQ/15 ML UDC PO ONE (22:55)
[2020-10-08] MEDS ORDERED: Isovue-370 500 ML BOTTLE IVP ONE (22:55)
[2020-10-09] MEDS ORDERED: Piperacillin/Tazobactam 3.375 GM in Water for inj. (sterile) 20 ML IVP ONE (01:10)
[2020-10-09] MEDS ORDERED: 0.9 % Sodium Chloride 1,000 ML IV ONE (01:10)
[2020-10-09 01:49] LABS: Amphetamine Screen,Urine Negative ng/mL (Cutoff=1000); Barbiturate Screen,Urine Negative ng/mL (Cutoff=200); Benzodiazepines Screen,Urine Negative ng/mL (Cutoff=200); Cannabinoid Screen,Urine Negative ng/mL (Cutoff = 50); Cocaine Screen,Urine Negative ng/mL (Cutoff= 300); Opiate Screen,Urine Negative ng/mL (Cutoff=300); Phencyclidine Screen,Urine Negative ng/mL (Cutoff=25)
[2020-10-09 02:00] LABS: Acetaminophen < 10 mcg/mL (10-20)
[2020-10-09] MEDS ORDERED: Naloxone 0.4 MG/ML INJ IVP PRN (02:01)
[2020-10-09] MEDS ORDERED: Ondansetron 4 MG/2 ML VIAL IVP PRN (02:01)
[2020-10-09] MEDS ORDERED: Potassium Chloride 40 MEQ, Lidocaine 1% 2 ML in 0.9 % Sodium Chloride 500 ML IVPB ONE (02:08)
[2020-10-09] MEDS ORDERED: 0.9 % Sodium Chloride 1,000 ML IVC SCH ×2 (02:15→11:49)
[2020-10-09 04:07] LABS: INR 1.2; Prothrombin Time 13.4 Seconds (9.4-12.1)
[2020-10-09 05:56] LABS: Alanine Aminotransferase 946 Units/L (7-52); Albumin 2.9 g/dL (3.5-5.7); Alkaline Phosphatase 210 Units/L (34-104); Aspartate Amino Transferase 193 Units/L (13-39); BUN/Creatinine Ratio 17 (6-26); Bilirubin,Direct 1.3 mg/dL (0.0-0.2); Bilirubin,Indirect 0.6 mg/dL (0.0-1.0); Bilirubin,Total 1.9 mg/dL (0.3-1.0); Blood Urea Nitrogen 10 mg/dL (6-20); Calcium 8.7 mg/dL (8.6-10.3); Carbon Dioxide 27 mEq/L (23-29); Chloride 103 mEq/L (98-107); Chol/HDL Ratio 25.3 (0-4.9); Cholesterol 101 mg/dL (< 200); Globulin 2.8 g/dL (2.4-3.5); Glucose 113 mg/dL (70-105); HDL Cholesterol 4 mg/dL (40-59); LDL Cholesterol,Calculated 61 mg/dL (< 100); Magnesium 1.6 mg/dL (1.6-2.6); Osmolality,Calculated 284 (280-300); Phosphorous 4.9 mg/dL (2.7-4.5); Potassium 3.3 mEq/L (3.5-5.1); Sodium 137 mEq/L (136-145); Total Protein 5.7 g/dL (6.4-8.9); Triglycerides 180 mg/dL (< 150); eGFR For African Americans > 60 (> 60); eGFR For Non-African Americans > 60 (> 60)
[2020-10-09 06:22] LABS: Thyroid Stimulating Hormone 3.667 mcIU/mL (0.340-5.600)
[2020-10-09] MEDS ORDERED: Piperacillin/Tazobactam 3.375 GM in 0.9 % Sodium Chloride Mini Bag 100 ML IVPB SCH (08:00)
[2020-10-09 10:26] LABS: Estimated Average Glucose 105 mg/dl; Hemoglobin A1C 5.3 %
[2020-10-09 11:44] VITALS: BP 92/44
[2020-10-09] MEDS ORDERED: Potassium Chloride Elixir 20 MEQ/15 ML UDC PO ONE (11:54)
== END 2020-10-09 12:00 | disposition left against medical advice (07) ==
LOC: 3NENU 19:32 → EMEROOARM 19:32 → SUATTDRO 10-09 01:52 → 3NENU 10-09 02:45
PROVIDERS: ADMIT Student in an Organized Health Care Education/Training Program; ATTEND Internal Medicine